=== PATIENT | female | born 1955 | race Caucasian/White ===

== ENCOUNTER 2023-12-04 15:07 | Inpatient (IN) | payer OTHER, MEDICAID ==
[~2023-12-04] VITALS: Ht 167.6 cm; Wt 49.5 kg
[2023-12-04 16:12] LABS: Urine Bacteria MANY /hpf (None Seen); Urine Blood 2+ /uL (Negative); Urine Clarity Ex.Turbid (Clear); Urine Color Colorless (Yellow); Urine Mucus FEW (None Seen); Urine Protein, UAD TRACE (Negative); Urine Specific Gravity 1.008 (1.001-1.035); Urine Urobilinogen Normal (Negative); Urine WBC 523 /hpf (0 - 5); Urine WBC Clumps PRESENT /hpf (None Seen); Urine pH 5.5 (5.0-9.0)
[2023-12-04 16:45] LABS: Basophils # (auto) 0 10 ^3/uL (0-0.2); Eosinophils # (auto) 0.5 10 ^3/uL (0-0.8); Eosinophils % (auto) 3.5 % (0.0-7.0); Hematocrit 37.6 % (36.0-46.0); Hemoglobin 12.4 g/dL (12.2-16.2); Lymphocytes # (auto) 0.4 10 ^3/uL (0.4-5.4); Lymphocytes % (auto) 2.9 % (10.0-50.0); Mean Corpuscular Hemoglobin 31.3 pg (28.0-32.0); Mean Corpuscular Volume 94.6 fL (80.0-100.0); Monocytes # (auto) 0.7 10 ^3/uL (0-1.3); Monocytes % (auto) 4.4 % (0.0-12.0); Neutrophils # (auto) 13.5 10 ^3/uL (1.6-8.6); Neutrophils % (auto) 89.2 % (37.0-80.0); Red Blood Cells 3.97 10^6/uL (4.0-5.20); White Blood Cell 15.2 10^3/uL (4.4-10.8)
[2023-12-04 17:01] LABS: Alanine Aminotransferase 356 U/L (7-40); Albumin 3.5 g/dL (3.2-4.8); Alkaline Phosphatase 102 U/L (46-116); Anion Gap 6 (5-15); Aspartate Aminotransferase 356 U/L (13-40); BUN/Creatinine Ratio 30.8 (10.0-20.0); Bilirubin, Total 0.9 mg/dL (0.2-1.0); Blood Urea Nitrogen 73 mg/dL (9-23); Carbon Dioxide 25 mmol/L (20-30); Chloride 102 mmol/L (98-107); Glucose 115 mg/dL (74-106); Potassium 4.6 mmol/L (3.5-5.1); Sodium 133 mmol/L (136-145); Total Protein 5.7 g/dL (5.7-8.2)
[2023-12-04] MEDS: KETOROLAC TROMETH 30 MG/ML 1ML VIAL IV ONE (17:41)
[2023-12-04] MEDS: ALBUTEROL SULF 2.5 MG/0.5ML(0.5%) NEB SOLN NEB ONE (17:55)
[2023-12-04] MEDS: IPRATROPIUM BROM 0.5 MG/2.5ML INH SOL NEB ONE (17:55)
[2023-12-04] MEDS: DexAMETHasone SOD PHOS 10MG/1ML VIAL INJ IV ONE (19:54)
[2023-12-04 19:55] VITALS: PULSE 89; RESP 18; O2SAT 96
[2023-12-04] MEDS: SODIUM CHLORIDE 0.9% 1,000 ML IV ONE (20:06)
[2023-12-04] MEDS: cefTRIAXone 1GM/50ML D5W 50 ML IV ONE (20:07)
[2023-12-04] MEDS ORDERED: IPRATROPIUM BROM 0.5 MG/2.5ML INH SOL NEB PRN (22:00)
[2023-12-04] MEDS ORDERED: ALBUTEROL SULF 2.5 MG/0.5ML(0.5%) NEB SOLN NEB PRN (22:00)
[2023-12-04] MEDS ORDERED: ATORVASTATIN 20 MG TAB PO SCH (22:00)
[2023-12-04] MEDS ORDERED: ONDANSETRON HCL 4 MG/2 ML VIAL IV PRN (22:00)
[2023-12-04] MEDS ORDERED: ACETAMINOPHEN 325 MG TAB PO PRN (22:00)
[2023-12-04 22:50] VITALS: BP 95/54; PULSE 85; RESP 20; TEMP 102; O2SAT 97
[2023-12-04] MEDS ORDERED: NITROGLYCERIN 0.4 MG SL TAB SL PRN (23:00)
[2023-12-04] MEDS ORDERED: MORPHINE SULFATE INJ 2 MG/ml SYRG IV PRN (23:00)
[2023-12-04] MEDS: ENOXAPARIN SOD 100 MG/1 ML SYRINGE SC ONE (23:35)
[2023-12-04] MEDS: HYDROcodone-ACET 5/325MG TAB PO PRN (23:36)
[2023-12-04] MEDS: TEMAZEPAM 15 MG CAP PO PRN (23:36)
[2023-12-05] VITALS (11 sets, daily range): BP systolic 108–120; BP diastolic 62–84; PULSE 61–88; RESP 16–18; TEMP 97–98.3; O2SAT 91–99
[2023-12-05] LABS: Rapid Influenza A Negative (Negative); Rapid Influenza B Negative (Negative)
[2023-12-05 00:01] LABS: COVID19 ANTIGEN SOFIA FIA NEGATIVE (NEGATIVE)
[2023-12-05 06:05] LABS: Basophils # (auto) 0 10 ^3/uL (0-0.2); Basophils % (auto) 0.1 % (0.0-2.0); Eosinophils # (auto) 0.1 10 ^3/uL (0-0.8); Eosinophils % (auto) 1.1 % (0.0-7.0); Hematocrit 34.3 % (36.0-46.0); Hemoglobin 11.5 g/dL (12.2-16.2); Lymphocytes # (auto) 0.2 10 ^3/uL (0.4-5.4); Lymphocytes % (auto) 1.7 % (10.0-50.0); Mean Corpuscular Hemoglobin 31.7 pg (28.0-32.0); Mean Corpuscular Hgb Conc. 33.5 g/dL (32.0-36.0); Mean Corpuscular Volume 94.7 fL (80.0-100.0); Monocytes # (auto) 0.3 10 ^3/uL (0-1.3); Monocytes % (auto) 2.3 % (0.0-12.0); Neutrophils # (auto) 12.1 10 ^3/uL (1.6-8.6); Neutrophils % (auto) 94.8 % (37.0-80.0); Red Blood Cells 3.62 10^6/uL (4.0-5.20); Red Cell Distribution Width 13.9 % (11.8-14.3); White Blood Cell 12.8 10^3/uL (4.4-10.8)
[2023-12-05 06:20] LABS: Alanine Aminotransferase 258 U/L (7-40); Albumin 3.3 g/dL (3.2-4.8); Alkaline Phosphatase 131 U/L (46-116); Anion Gap 11 (5-15); Aspartate Aminotransferase 174 U/L (13-40); BUN/Creatinine Ratio 29.3 (10.0-20.0); Blood Urea Nitrogen 66 mg/dL (9-23); Calcium 8.4 mg/dL (8.7-10.4); Carbon Dioxide 21 mmol/L (20-30); Chloride 104 mmol/L (98-107); Glucose 147 mg/dL (74-106); Potassium 4.9 mmol/L (3.5-5.1); Sodium 136 mmol/L (136-145)
[2023-12-05 06:21] LABS: Bilirubin, Total 0.4 mg/dL (0.2-1.0); Total Protein 5.8 g/dL (5.7-8.2)
[2023-12-05] MEDS: ASPirin 81 mg TAB PO SCH (09:53)
[2023-12-05 12:36] LABS: Magnesium 2.2 mg/dL (1.6-2.6)
[2023-12-05 12:37] LABS: Phosphorus 6.8 mg/dL (2.4-5.1)
[2023-12-05 13:17] LABS: Hepatitis B Surface Antigen Negative (Negative)
[2023-12-05 13:46] LABS: Hepatitis C Antibody Positive (Negative)
[2023-12-05 14:07] LABS: Urine Bacteria MOD /hpf (None Seen); Urine Blood 2+ /uL (Negative); Urine Clarity Ex.Turbid (Clear); Urine Color Light-Brown (Yellow); Urine Protein, UAD 1+ (Negative); Urine Specific Gravity 1.009 (1.001-1.035); Urine Urobilinogen Normal (Negative); Urine WBC 1682 /hpf (0 - 5); Urine WBC Clumps PRESENT /hpf (None Seen); Urine pH 5.5 (5.0-9.0)
[2023-12-05 14:10] LABS: Protein, Urine 29.1 mg/dL (0.0-11.9)
[2023-12-05 14:12] LABS: Creatinine, Urine 53.7 mg/dL (30.0-125.0); Urine Protein/Creatinine Ratio 0.54
[2023-12-05] MEDS: ERGOCALCIFEROL 50,000 UNIT(1.25MG) CAP PO SCH (15:54)
[2023-12-05] MEDS: SODIUM CHLORIDE 0.9% 1,000 ML IV SCH (15:58)
[2023-12-05] MEDS: cefTRIAXone 1GM/50ML D5W 50 ML IV SCH (20:34)
[2023-12-06 05:00] VITALS: TEMP 98.7
[2023-12-06 07:24] LABS: Hematocrit 35.7 % (36.0-46.0); Hemoglobin 11.9 g/dL (12.2-16.2); Mean Corpuscular Hemoglobin 31.9 pg (28.0-32.0); Mean Corpuscular Hgb Conc. 33.4 g/dL (32.0-36.0); Mean Corpuscular Volume 95.5 fL (80.0-100.0); Red Blood Cells 3.74 10^6/uL (4.0-5.20); Red Cell Distribution Width 13.8 % (11.8-14.3); White Blood Cell 11.4 10^3/uL (4.4-10.8)
[2023-12-06 07:33] LABS: Basophils % (manual) 0 (0.0-2.0); Blast Cells 0; Eosinophils % (manual) 0 (0-7); Metamyelocytes % 0; Myelocytes % 0; Promyelocytes % 0; Reactive Lymphocytes 0
[2023-12-06 07:36] LABS: Alanine Aminotransferase 178 U/L (7-40); Alkaline Phosphatase 110 U/L (46-116); Anion Gap 3 (5-15); BUN/Creatinine Ratio 34.7 (10.0-20.0); Blood Urea Nitrogen 61 mg/dL (9-23); Calcium 8.5 mg/dL (8.5-10.1); Carbon Dioxide 24 mmol/L (20-30); Chloride 108 mmol/L (98-107); Glucose 142 mg/dL (74-106); Potassium 4.7 mmol/L (3.5-5.1); Sodium 135 mmol/L (136-145)
[2023-12-06 07:37] LABS: Albumin 3.4 g/dL (3.2-4.8); Aspartate Aminotransferase 54 U/L (13-40); Bilirubin, Total 0.3 mg/dL (0.2-1.0); Total Protein 5.8 g/dL (5.7-8.2)
[2023-12-06 08:00] VITALS: PULSE 71
[2023-12-06 08:38] LABS: Band Neutrophils % (manual) 13; Lymphocytes % (manual) 6 (10.0-50.0); Monocytes % (manual) 3 (0-12); Platelet Estimate Decreased
[2023-12-06 10:06] VITALS: O2SAT 95
== END 2023-12-06 11:50 | disposition left against medical advice (07) | DRG 871 ==
LOC: EDBD 15:07 → ER 15:07 → TELE 22:54 → TELE-WESTW 22:54
PROVIDERS: ADMIT Nurse Practitioner; ATTEND Family Medicine
DX: A41.50 Gram-negative sepsis, unspecified (principal); I21.A1 Myocardial infarction type 2; J96.20 Acute and chronic respiratory failure, unspecified whether with hypoxia or hypercapnia; N17.0 Acute kidney failure with tubular necrosis; J44.1 Chronic obstructive pulmonary disease with (acute) exacerbation; N13.6 Pyonephrosis; F17.210 Nicotine dependence, cigarettes, uncomplicated; K72.90 Hepatic failure, unspecified without coma; N18.9 Chronic kidney disease, unspecified; D63.1 Anemia in chronic kidney disease; B19.20 Unspecified viral hepatitis C without hepatic coma; N32.0 Bladder-neck obstruction; Z20.822 Contact with and (suspected) exposure to COVID-19; Z53.29 Procedure and treatment not carried out because of patient's decision for other reasons; N35.92 Unspecified urethral stricture, female; Z79.899 Other long term (current) drug therapy; Z88.2 Allergy status to sulfonamides; Z80.1 Family history of malignant neoplasm of trachea, bronchus and lung
CPT/HCPCS: 36415; 71045; 71250; 74176; 76705; 76775; 80053; 81001; 82306; 82570; 82962; 83605; 83735; 83880; 83970; 84100; 84156; 84300; 84484; 85007; 85025; 85027; 85379; 86803; 87086; 87340; 87426; 87804; 93005; 93306; 94640; 96361; 96365; 96372; G0378; J1100; J1885

== ENCOUNTER 2025-03-14 21:11 | Inpatient (IN) | payer OTHER, MEDICAID ==
[~2025-03-14] VITALS: Ht 167.6 cm; Wt 56.6 kg
--- NOTE | 2025-03-14 21:20 | ECG ---
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
[2025-03-14] MEDS: DEXTROSE 50% SYRINGE 50 ML IV ONE (21:22)
--- NOTE | 2025-03-14 21:23 | ED.PDOC ---
History of Present Illness HPI Comments 70-year-old female is brought in by ambulance from private residence for chief complaint of shortness of breath. Significant history for COPD, hepatitis-C, liver failure, sepsis with UTI, and tobacco abuse. Per EMS personnel report, patient was reported to have been found on the floor on a pile of trash and unresponsive, gasping for air by her son's , who was visiting the patient's home, earlier, this evening. She was found on scene with initial O2 sat of 50% on room air and a blood glucose of 85. EN route, patient was given breathing treatment, oxygen, and fluids. No reported chest pain, cough, congestion, or further associated symptoms. 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 REVIEW OF SYSTEMS: Unable to obtain PHYSICAL EXAM: General: Lethargic, moving all extremities sporadically. Appears thin and f rail. Skin: Skin in warm, dry and intact. Appropriate color for ethnicity. HEENT: The head is normocephalic and atraumatic. Conjunctivae are clear without exudates or hemorrhage. Sclera is non-icteric. EOM are intact. PERRLA. No signs of nystagmus. Eyelids are normal in appearance without swelling or lesions. Oral mucosa is pink and moist Neck: The neck is supple with normal range of motion. No JVD. Cardiac: Heart rate and rhythm are normal. No murmurs, gallops, or rubs are auscultated. Respiratory: Coarse breath sounds on right lobe. Left lung sounds are clear in all lobes bilaterally without rales, rhonchi, or wheezes. Abdominal: Abdomen is soft, non-tender without distention, guarding or rigidity. Bowel sounds are present and normoactive in all four quadrants. Extremities: Upper and lower extremities are atraumatic in appearance without deformity or edema. Neurological: T patient is not speaking or answering questions. Awake with eyes open. There is no facial asymmetry. Psychiatric: Appropriate mood and affect. Good judgement and insight. Time Seen by MD: 21:16 Primary Care Provider: CASTRO Reviewed Notes: Nurses Notes, Chauffeur Notes, Medications, Allergies Allergies: Coded Allergies: Sulfa Antibiotics (Verified Allergy, Unknown, 12/04/23) Home Meds No Active Prescriptions or Reported Meds Information Source: Emergency Med Personnel Mode of Arrival: EMS Past Medical History PAST MEDICAL HISTORY: Denies Surgical History: Denies all surgeries OYSTER GROWER History: No Pertinent OYSTER GROWER History Family History Family History: Reviewed,noncontributory to illness Social History Smoker: Cigarettes Alcohol: Denies ETOH Use Drugs: Denies Drug Use Lives In: Home Was a procedure done? Was a procedure done?: Yes Sedation Sedation?: Yes Informed consent obtained: Yes Sedation start time: 22:00 Sedation end time: 22:15 Sedation total time: 15 minutes Intubation Indication: Respiratory Insufficiency, Altered Mental Status Prep: Preoxygenation Pretreated with: Other (Propofol) Medicated with: Succinylcholine (100 mg), Other (20 mg of etomidate) Intubation Approach: Orotracheal (7.5) Intubation size: cm (22 at the lip) EKG EKG : Pulse Rate (adult): 95 [place]: Normal Cardiac Rhythm: NSR, PAC's Block: None Hypertrophy: None ST: Normal Comments No STEMI Differential Dx Considerations may include: Differential diagnoses considered includebut arenot limited to acute Bronchitis, Asthma, COPD, Pneumothorax, PE, CHF, Pulmonary HTN, Anemia, CO Poisoning, Methemoglobinemia, Hyperventilation, Metabolic Acidosis, Pulmonary Edema, Pneumonia, ACS, Pericardial Tamponade, Anxiety, other X-Ray, Labs, Meds, VS Vital Signs Date Time Temp Pulse Resp B/P (MAP) Pulse Ox O2 Delivery O2 Flow Rate FiO2 03/15/25 01:00 95.7 99 21 100 95.7 03/15/25 00:53 20 100 Mechanical Ventilator+ 50 50 03/15/25 00:45 95.2 93 21 100 95.2 03/15/25 00:30 132/74 03/15/25 00:00 93.2 87 14 132/74 (93) 96 93.2 03/14/25 23:50 90 25 199/74 (115) 100 50 03/14/25 23:45 93.2 89 18 122/64 (83) 96 93.2 03/14/25 23:30 93.2 89 18 122/64 (83) 96 93.2 03/14/25 23:15 93.2 89 18 122/64 (83) 96 93.2 03/14/25 23:00 93.2 89 18 122/64 (83) 96 93.2 03/14/25 22:45 93.2 89 18 122/64 (83) 96 93.2 03/14/25 22:30 93.2 94 20 140/86 (104) 98 93.2 03/14/25 22:15 93.2 94 20 140/86 (104) 98 93.2 03/14/25 22:00 93.2 84 12 127/91 (103) 98 93.2 03/14/25 22:00 20 99 Mechanical Ventilator+ 100 100 03/14/25 21:45 93.2 77 23 115/82 (93) 98 93.2 03/14/25 21:40 93.2 77 23 115/82 (93) 98 93.2 03/14/25 21:40 93 20 164/68 (100) 100 100 03/14/25 21:23 95 03/14/25 21:17 95 03/14/25 21:11 100 24 145/64 96 Lab Test 03/15/25 00:40 03/15/25 00:36 03/14/25 22:50 03/14/25 22:49 Range/Units Blood Gas Specimen Type Arterial Arterial Blood Gas Sample Site Right radial Right radial Blood Gas Patient Temperature 37.0 37.0 Arterial Blood Date Drawn [id number] Arterial Blood pH 7.027 *L 6.922 *L 7.350-7.450 Arterial Blood Partial Pressure CO2 31.5 L 32.9 32.0-45.0 mmHg Arterial Blood Partial Pressure O2 242.4 H 512.7 *H 83.0-108.0 mmHg Arterial Blood HCO3 8.1 L 6.6 L 21.0-28.0 mmol/L Arterial Blood Oxygen Saturation 99.4 H 99.7 H 94.0-98.0 % Arterial Blood Base Excess -21.4 L -24.5 L -2.0-3.0 mmol/L Arterial Blood Oxyhemoglobin 98.6 H 99.0 H 94.0-98.0 % Arterial Blood Carboxyhemoglobin 0.6 0.4 L 0.5-1.5 % Arterial Blood Methemoglobin 0.2 0.3 0.0-1.5 % Killian Test Modified Modified Blood Gas Total Hemoglobin 9.50 L 8.90 L 12.0-16.0 g/dL Blood Gas Set Respiration Rate 20.0 20.0 Blood Gas Modality Vent - ac Vent - ac FiO2 % 50.0 100.0 Blood Gas Tidal Volume 500.0 500.0 Blood Gas PEEP or CPAP 5.0 5.0 Blood Gas Critical Value Read Back Yes Yes Blood Gas Notified Whom socrates Pickard Dr, c Blood Gas Notified Time [id number] Blood Gas Notified By roxie Campbell, roxie Sodium Level 146 H 136-145 mmol/L Potassium Level 6.2 *H 3.5-5.1 mmol/L Chloride Level 120 H 98-107 mmol/L Carbon Dioxide Level < 10 *L 20-31 mmol/L Anion Gap 16.46224 H 5-15 Blood Urea Nitrogen 129 *H 9-23 mg/dL Creatinine 11.81 *H 0.550-1.02 mg/dL Glomerular Filtration Rate Calc 3 >90 mL/min BUN/Creatinine Ratio 10.9 10.0-20.0 Serum Glucose 250 H 74-106 mg/dL Calcium Level 7.7 L 8.7-10.4 mg/dL Troponin I High Sensitivity 36 *H 39 *H </=34 ng/L Test 03/14/25 22:08 03/14/25 21:34 03/14/25 21:20 Range/Units Urine Color Brown H Yellow Urine Clarity Cloudy H Clear Urine pH 5.5 5.0-9.0 Urine Specific [place] 1.011 1.001-1.035 Urine Protein 1+ H Negative Urine Ketones Negative Negative Urine Blood 2+ H Negative /uL Urine Nitrite Negative Negative Urine Bilirubin Negative Negative Urine Urobilinogen Normal Negative mg/dL Urine Leukocyte Esterase 1+ H Negative /uL Urine Glucose Normal Normal mg/dL Urine Opiates Screen Neg NEGATIVE Urine Fentanyl Screen Neg NEGATIVE Urine Barbiturates Screen Neg NEGATIVE Urine Phencyclidine Screen Neg NEGATIVE Urine Amphetamines Screen Pos NEGATIVE Urine Benzodiazepines Screen Neg NEGATIVE Urine Cocaine Screen Neg NEGATIVE Urine Cannabinoids Screen Neg NEGATIVE White Blood Count 11.3 H 4.4-10.8 10^3/uL Red Blood Count 3.04 L 4.0-5.20 10^6/uL Hemoglobin 8.9 L 12.2-16.2 g/dL Hematocrit 29.0 L 36.0-46.0 % Mean Corpuscular Volume 95.3 80.0-100.0 fL Mean Corpuscular Hemoglobin 29.3 28.0-32.0 pg Mean Corpuscular Hemoglobin Concent 30.8 L 32.0-36.0 g/dL Red Cell Distribution Width 19.2 H 11.8-14.3 % Platelet Count 382 140-450 10^3/uL Mean Platelet Volume 7.7 6.9-10.8 fL Neutrophils (%) (Auto) 37.0-80.0 % Lymphocytes (%) (Auto) 10.0-50.0 % Monocytes (%) (Auto) 0.0-12.0 % Basophils (%) (Auto) 0.0-2.0 % Neutrophils # (Auto) 1.6-8.6 10 ^3/uL Lymphocytes # (Auto) 0.4-5.4 10 ^3/uL Monocytes # (Auto) 0-1.3 10 ^3/uL Differential Total Cells Counted 100.0 100 Neutrophils % (Manual) 73 37.0-80.0 Band Neutrophils % (Manual) 11 Lymphocytes % (Manual) 6 L 10.0-50.0 Monocytes % (Manual) 10 0-12 Eosinophils % (Manual) 0 0-7 Basophils % (Manual) 0 0.0-2.0 Metamyelocytes % (manual) 0 Myelocytes % (Manual) 0 Promyelocytes % (Manual) 0 Blast Cells % (Manual) 0 Reactive Lymphocytes 0 Platelet Estimate Adequate Sodium Level 144 136-145 mmol/L Potassium Level 6.7 *H 3.5-5.1 mmol/L Chloride Level 120 H 98-107 mmol/L Carbon Dioxide Level < 10 *L 20-31 mmol/L Anion Gap 14.90262 5-15 Blood Urea Nitrogen 127 *H 9-23 mg/dL Creatinine 12.72 *H 0.550-1.02 mg/dL Glomerular Filtration Rate Calc 3 >90 mL/min BUN/Creatinine Ratio 10.0 10.0-20.0 Serum Glucose 250 H 74-106 mg/dL Lactic Acid Level 0.7 0.4-2.0 mmol/L Calcium Level 8.1 L 8.7-10.4 mg/dL Magnesium Level 2.9 H 1.6-2.6 mg/dL Total Bilirubin < 0.2 L 0.2-1.0 mg/dL Aspartate Amino Transferase (AST) 27 13-40 U/L Alanine Aminotransferase (ALT) 19 7-40 U/L Alkaline Phosphatase 90 46-116 U/L Troponin I High Sensitivity 39 *H </=34 ng/L B-Type Natriuretic Peptide 134.64 0-100 pg/mL Total Protein 7.6 5.7-8.2 g/dL Albumin 4.0 3.2-4.8 g/dL Lipase 435 H 12-53 U/L Thyroid Stimulating Hormone (TSH) 1.85 0.55-4.78 uIU/mL Plasma/Serum Blood Alcohol < 3.0 <10 mg/dL Blood Gas Specimen Type Arterial Blood Gas Sample Site Right radial Blood Gas Patient Temperature 37.0 Arterial Blood Date Drawn [id number] Arterial Blood pH 6.922 *L 7.350-7.450 Arterial Blood Partial Pressure CO2 27.1 L 32.0-45.0 mmHg Arterial Blood Partial Pressure O2 319.1 *H 83.0-108.0 mmHg Arterial Blood HCO3 5.5 L 21.0-28.0 mmol/L Arterial Blood Oxygen Saturation 99.6 H 94.0-98.0 % Arterial Blood Base Excess -25.5 L -2.0-3.0 mmol/L Arterial Blood Oxyhemoglobin 98.7 H 94.0-98.0 % Arterial Blood Carboxyhemoglobin 0.5 0.5-1.5 % Arterial Blood Methemoglobin 0.4 0.0-1.5 % Killian Test Modified Blood Gas Total Hemoglobin 9.10 L 12.0-16.0 g/dL Blood Gas Liter Flow 15.00 Blood Gas Modality Mask - nrb FiO2 % 100.0 Blood Gas Critical Value Read Back Yes Blood Gas Notified Whom socrates Pickard Blood Gas Notified Time [id number] Blood Gas Notified By Jaci jara rrt Current Medications Medications (Trade) Dose Ordered Sig/Stacy Route Start Time Stop Time Status Last Admin Albuterol (Ventolin Medneb) 2.5 mg ONCE ONCE NEB 03/14/25 21:30 03/14/25 21:31 DC 03/14/25 22:35 Ipratropium Belt (Atrovent Medneb) 0.5 mg ONCE ONCE NEB 03/14/25 21:30 03/14/25 21:31 DC 03/14/25 22:35 Dextrose/Sodium Chloride 1,000 ml @ 125 mls/hr Q8H ONCE IV 03/14/25 21:30 03/15/25 05:29 03/14/25 22:58 Dexamethasone Sodium Phosphate 10 mg/Dextrose 51 ml @ 204 mls/hr ONCE ONCE IV 03/14/25 21:30 03/14/25 21:44 DC 03/14/25 23:16 Piperacillin Sod/ Tazobactam Sod 100 ml @ 100 mls/hr ONCE ONCE IV 03/14/25 21:30 03/14/25 22:29 DC 03/14/25 22:58 Vancomycin HCl 250 ml @ 250 mls/hr ONCE ONCE IV 03/14/25 21:30 03/14/25 22:29 DC 03/15/25 00:35 Sodium Bicarbonate 50 ml ONCE ONCE IV 03/14/25 21:30 03/14/25 21:31 DC 03/14/25 22:58 Insulin Human Regular (InsuLIN R) 10 units ONCE ONCE IV 03/15/25 00:30 03/15/25 00:31 DC 03/15/25 01:25 Dextrose 50 ml ONCE ONCE IV 03/15/25 00:30 03/15/25 00:31 DC 03/15/25 01:40 Albuterol (Ventolin Medneb) 20 mg ONCE ONCE NEB 03/15/25 00:30 03/15/25 00:31 DC 03/15/25 00:53 Sodium Bicarbonate 50 ml ONCE ONCE IV 03/15/25 00:30 03/15/25 00:31 DC 03/15/25 01:55 Calcium Gluconate/ Sodium Chloride 50 ml @ 120 mls/hr ONCE ONCE IV 03/15/25 00:30 03/15/25 00:54 DC 03/15/25 01:34 Furosemide (Lasix Injection) 20 mg ONCE ONCE IV 03/15/25 00:30 03/15/25 00:31 DC 03/15/25 01:27 Sodium Chloride 1,000 ml @ 1,000 mls/hr Q1H ONCE IV 03/15/25 00:30 03/15/25 01:29 DC 03/15/25 01:15 Time of 1ST Reevaluation: 21:46 Reevaluation 1ST: Unchanged Patient Education/Counseling: Other (Patient is intubated) Family Education/Counseling: No Family Present SEPSIS Sepsis Screen Physician Orders Covid19 Antigen Mikayla (03/14/25 ) Rapid Influenza A&B (03/14/25 21:16) Blood Culture (03/14/25 21:16) Saline Lock (03/14/25 21:16) Straight Cath. (03/14/25 ) Head Without Contrast (03/14/25 21:16) Abg W/ Co-Ox (03/14/25 21:16) Oven Unloader (03/14/25 ) Electrocardigram (03/14/25 22:16) Electrocardigram (03/15/25 00:16) Blood Glucose Assessment (03/14/25 21:16) D5w/Sod Chlo 0.9% (D5w Ns 0.9%) (03/14/25 21:30) Respiratory Culture W/ Gs (03/14/25 21:53) Abg W/ Co-Ox (03/14/25 22:40) Ventilator Orders (03/14/25 21:53) Chest Xray 1 View (03/14/25 22:03) Abg W/ Co-Ox (03/15/25 00:16) Vital Signs Date Time Temp Pulse Resp B/P (MAP) Pulse Ox O2 Delivery O2 Flow Rate FiO2 03/15/25 01:00 95.7 99 21 100 95.7 03/15/25 00:53 20 100 Mechanical Ventilator+ 50 50 03/15/25 00:45 95.2 93 21 100 95.2 03/15/25 00:30 132/74 03/15/25 00:00 93.2 87 14 132/74 (93) 96 93.2 03/14/25 23:50 90 25 199/74 (115) 100 50 03/14/25 23:45 93.2 89 18 122/64 (83) 96 93.2 03/14/25 23:30 93.2 89 18 122/64 (83) 96 93.2 03/14/25 23:15 93.2 89 18 122/64 (83) 96 93.2 03/14/25 23:00 93.2 89 18 122/64 (83) 96 93.2 03/14/25 22:45 93.2 89 18 122/64 (83) 96 93.2 03/14/25 22:30 93.2 94 20 140/86 (104) 98 93.2 03/14/25 22:15 93.2 94 20 140/86 (104) 98 93.2 03/14/25 22:00 93.2 84 12 127/91 (103) 98 93.2 03/14/25 22:00 20 99 Mechanical Ventilator+ 100 100 03/14/25 21:45 93.2 77 23 115/82 (93) 98 93.2 03/14/25 21:40 93.2 77 23 115/82 (93) 98 93.2 03/14/25 21:40 93 20 164/68 (100) 100 100 03/14/25 21:23 95 03/14/25 21:17 95 03/14/25 21:11 100 24 145/64 96 Laboratory Tests Test 03/14/25 21:34 Lactic Acid Level 0.7 mmol/L (0.4-2.0) White Blood Count 11.3 10^3/uL (4.4-10.8) H Medications Medications Dose Ordered Sig/Stacy Route Start Time Stop Time Status Last Admin Dose Admin Albuterol 2.5 mg ONCE ONCE NEB 03/14/25 21:30 03/14/25 21:31 DC 03/14/25 22:35 Albuterol 20 mg ONCE ONCE NEB 03/15/25 00:30 03/15/25 00:31 DC 03/15/25 00:53 Calcium Gluconate/ Sodium Chloride 50 ml @ 120 mls/hr ONCE ONCE IV 03/15/25 00:30 03/15/25 00:54 DC 03/15/25 01:34 Dexamethasone Sodium Phosphate 10 mg/Dextrose 51 ml @ 204 mls/hr ONCE ONCE IV 03/14/25 21:30 03/14/25 21:44 DC 03/14/25 23:16 Dextrose 50 ml ONCE ONCE IV 03/15/25 00:30 03/15/25 00:31 DC 03/15/25 01:40 Dextrose/Sodium Chloride 1,000 ml @ 125 mls/hr Q8H ONCE IV 03/14/25 21:30 03/15/25 05:29 03/14/25 22:58 Furosemide 20 mg ONCE ONCE IV 03/15/25 00:30 03/15/25 00:31 DC 03/15/25 01:27 Insulin Human Regular 10 units ONCE ONCE IV 03/15/25 00:30 03/15/25 00:31 DC 03/15/25 01:25 Ipratropium Belt 0.5 mg ONCE ONCE NEB 03/14/25 21:30 03/14/25 21:31 DC 03/14/25 22:35 Piperacillin Sod/ Tazobactam Sod 100 ml @ 100 mls/hr ONCE ONCE IV 03/14/25 21:30 03/14/25 22:29 DC 03/14/25 22:58 Sodium Bicarbonate 50 ml ONCE ONCE IV 03/14/25 21:30 03/14/25 21:31 DC 03/14/25 22:58 Sodium Bicarbonate 50 ml ONCE ONCE IV 03/15/25 00:30 03/15/25 00:31 DC 03/15/25 01:55 Sodium Chloride 1,000 ml @ 1,000 mls/hr Q1H ONCE IV 03/15/25 00:30 03/15/25 01:29 DC 03/15/25 01:15 Vancomycin HCl 250 ml @ 250 mls/hr ONCE ONCE IV 03/14/25 21:30 03/14/25 22:29 DC 03/15/25 00:35 Departure 1 Departure Time of Disposition: 00:19 Impression: Primary Impression: Metabolic encephalopathy Additional Impressions: Metabolic acidosis Acute renal failure COPD (chronic obstructive pulmonary disease) Hepatitis C Disposition: ADMITTED INPATIENT Condition: Critical e-Prescriptions No Active Prescriptions or Reported Meds Comments 70-year-old female who presented to the emergency department via EMS with altered mental status. She was intubated for airway protection, severe acidosis. Antibiotics initiated for suspected sepsis. Hyperkalemia treatment initiated Patient admitted to hospitalist service for further treatment, evaluation and monitoring. Critical Care Note Critical Care Time?: Yes (55 min-critical care time only) Critical care comment: Due to a high probability of clinically significant, life threatening deterioration, the patient required my highest level of preparedness to inte rvene emergently and I personally spent this critical care time directly and personally managing the patient. This critical care time included obtaining a history; examining the patient; pulse oximetry; ordering and review of studies; arranging urgent treatment with development of a management plan; evaluation of patient's response to treatment; frequent reassessment; and, discussions with other providers. This critical care time was performed to assess and manage the high probability of imminent, life-threatening deterioration that could result in multi-organ failure. It was exclusive of separately billable procedures and treating other patients and teaching time. Please see my other sections and the rest of the note for further information on patient assessment and treatment. Stability Stability form required: No Heart Score Heart Score: Heart Score Response (Comments) Value History N/A 0 EKG N/A 0 Age N/A 0 Risk Factors N/A 0 Troponin N/A 0 Total 0 I personally scribed for HENNY LUCIO MD ([email or web address]) on 03/14/25 at 21:23. Electronically submitted by Trino Rodgers ([email or web address]). I personally scribed for HENNY LUCIO MD ([email or web address]) on 03/15/25 at 00:50. Electronically submitted by Trino Rodgers ([email or web address]). HENNY LUCIO MD Mar 14, 2025 21:23
[2025-03-14] MEDS: SUCCINYLCHOLINE CHLORIDE 20 MG/ML 10ML VIAL IV ONE (21:37)
[2025-03-14] MEDS: ETOMIDATE (2MG/ML) 20ML VIAL IV ONE (21:37)
[2025-03-14] MEDS: PROPOFOL 100 ML IV ONE (21:37)
[2025-03-14 21:49] LABS: Hemoglobin 8.9 g/dL (12.2-16.2)
[2025-03-14 21:50] LABS: Hematocrit 29.0 % (36.0-46.0); Mean Corpuscular Hemoglobin 29.3 pg (28.0-32.0); Mean Corpuscular Volume 95.3 fL (80.0-100.0)
[2025-03-14 21:52] LABS: Base Excess -25.5 mmol/L (-2.0-3.0)
[2025-03-14 22:19] LABS: Alanine Aminotransferase 19 U/L (7-40); Albumin 4.0 g/dL (3.2-4.8); Alkaline Phosphatase 90 U/L (46-116); Anion Gap 14.00001 (5-15); BUN/Creatinine Ratio 10.0 (10.0-20.0); Sodium 144 mmol/L (136-145); Total Protein 7.6 g/dL (5.7-8.2)
[2025-03-14 22:27] LABS: Chloride 120 mmol/L (98-107); Glucose 250 mg/dL (74-106)
[2025-03-14 22:28] LABS: Bilirubin, Total < 0.2 mg/dL (0.2-1.0); Calcium 8.1 mg/dL (8.7-10.4); Magnesium 2.9 mg/dL (1.6-2.6)
[2025-03-14 22:30] LABS: Carbon Dioxide < 10 mmol/L (20-31); Potassium 6.7 mmol/L (3.5-5.1); Total Cells Counted 100.0 (100)
[2025-03-14 22:31] LABS: Blood Urea Nitrogen 127 mg/dL (9-23)
--- NOTE | 2025-03-14 22:31 | DVH ---
CHEST RADIOGRAPH Indication: S/P INTUBATION Technique: Single frontal view of the chest was obtained Comparison: XY CHEST XRAY 1 VIEW on DOS: 12/04/23, CT CHST AB PEL WO CON-NO IV/ORAL on DOS: 12/04/23 FINDINGS: Lines and Tubes: Endotracheal tube 7.5 cm above the mirtha. Lungs: No focal consolidation. Pleura: No effusion. No pneumothorax. Cardiomediastinal contours: Unremarkable Bones: No acute osseous abnormality. IMPRESSION: 1. Endotracheal tube 7.5 cm above the mirtha. 2. Inflation
[2025-03-14] MEDS: IPRATROPIUM BROM 0.5 MG/2.5ML INH SOL NEB ONE (22:35)
[2025-03-14] MEDS: ALBUTEROL SULF 2.5 MG/0.5ML(0.5%) NEB SOLN NEB ONE (22:35)
[2025-03-14 22:44] LABS: Lipase 435 U/L (12-53)
[2025-03-14] MEDS: SODIUM BICARB 8.4% 50Meq/50ml SYR Vial IV ONE (22:58)
[2025-03-14] MEDS: PIPERACILLIN-TAZOB 3.375GM 100 ML IV ONE (22:58)
[2025-03-14] MEDS: D5W/SOD CHLO 0.9% 1,000 ML IV ONE (22:58)
[2025-03-14 23:00] LABS: Base Excess -24.5 mmol/L (-2.0-3.0)
[2025-03-14 23:07] LABS: Urine Protein, UAD 1+ (Negative)
[2025-03-14 23:37] LABS: Amphetamine Screen, Urine Pos (NEGATIVE); Barbiturate Scree,Urine Neg (NEGATIVE); Benzodiazephine Screen, Urine Neg (NEGATIVE); Cannabinoid Screen, Urine Neg (NEGATIVE); Cocaine Screen, Urine Neg (NEGATIVE); Opiate Scree,Urine Neg (NEGATIVE); Phencyclidine Screen, Urine Neg (NEGATIVE)
[2025-03-15] VITALS (76 sets, daily range): BP systolic 87–131; BP diastolic 1–70; PULSE 65–101; RESP 15–30; TEMP 94–98; O2SAT 85–100
[2025-03-15] MEDS: PROPOFOL 100 ML IV SCH (00:30)
[2025-03-15] MEDS: VANCOMYCIN 1GM/250ML KIT 250 ML IV ONE (00:35)
[2025-03-15 00:48] LABS: Base Excess -21.4 mmol/L (-2.0-3.0)
[2025-03-15] MEDS: ALBUTEROL SULF 2.5 MG/0.5ML(0.5%) NEB SOLN NEB ONE (00:53)
[2025-03-15 01:05] LABS: Anion Gap 16.00001 (5-15)
[2025-03-15 01:10] LABS: BUN/Creatinine Ratio 10.9 (10.0-20.0)
[2025-03-15 01:12] LABS: Calcium 7.7 mg/dL (8.7-10.4); Chloride 120 mmol/L (98-107); Glucose 250 mg/dL (74-106); Sodium 146 mmol/L (136-145)
[2025-03-15] MEDS: SODIUM CHLORIDE 0.9% 1,000 ML IV ONE (01:15)
[2025-03-15 01:25] LABS: Blood Urea Nitrogen 129 mg/dL (9-23); Carbon Dioxide < 10 mmol/L (20-31); Potassium 6.2 mmol/L (3.5-5.1)
[2025-03-15] MEDS: InsuLIN REG 1unit/0.01ml Soln (100units/ml) IV ONE (01:25)
[2025-03-15] MEDS: FUROSEMIDE 20 MG/2 ML VIAL IV ONE (01:27)
[2025-03-15] MEDS: CALCIUM GLUC 1,000mg/50ml-NS 50 ML IV ONE (01:34)
[2025-03-15] MEDS: DEXTROSE (50%) 50ML SYRG IV ONE (01:40)
[2025-03-15] MEDS: PROPOFOL 100 ML IV ONE (01:40)
[2025-03-15] MEDS: ETOMIDATE (2MG/ML) 20ML VIAL IV ONE (01:47)
[2025-03-15] MEDS: SUCCINYLCHOLINE CHLORIDE 20 MG/ML 10ML VIAL IV ONE (01:48)
[2025-03-15] MEDS: SODIUM BICARB 8.4% 50Meq/50ml SYR INJ IV ONE (01:55)
--- NOTE | 2025-03-15 02:54 | DVH ---
EXAM: CT HEAD WITHOUT CONTRAST INDICATION: AMS TECHNIQUE: CT of the head without intravenous contrast. Radiation Dose : 1. Head: CT Dose: CTDI volume is 60.18 mGy. Dose-length product is 1185.8 mGy*cm The dose indicators for CT are the volume Computed Tomography (CT) Dose Index (CTDIvol) and the Dose Length Product (DLP), and are measured in units of mGy and mGy-cm, respectively. These indicators are not patient dose, but values generated from the CT scanner acquisition factors. The report includes radiation exposure data for exposures received during this examination. COMPARISON: None FINDINGS: There is no evidence of acute intracranial hemorrhage, extra-axial collection, mass effect, midline s hift, herniation or hydrocephalus. The ventricles, sulci and cisterns are age appropriate. The dee-white differentiation is intact. Patchy periventricular and subcortical white matter hypoattenuation is nonspecific but may be related to small vessel ischemic disease. Sphenoid mucosal sinus disease. The remaining visualized paranasal sinuses and mastoid air cells are clear. The surrounding soft tissues and osseous structures are unremarkable. IMPRESSION: 1. No acute intracranial abnormality. Radiation optimization: All CT scans at this facility use at least one of these dose optimization steve hniques: automated exposure control mA and/or kV adjustment per patient size (includes targeted exam s where dose is matched to clinical indication) or iterative reconstruction.
[2025-03-15] MEDS ORDERED: NITROGLYCERIN 0.4 MG SL TAB SL PRN (04:15)
[2025-03-15] MEDS ORDERED: ALBUTEROL SULF 2.5 MG/0.5ML(0.5%) NEB SOLN NEB PRN (04:15)
[2025-03-15] MEDS ORDERED: MORPHINE SULFATE INJ 2 MG/ml SYRG IV PRN (04:15)
[2025-03-15] MEDS ORDERED: ONDANSETRON HCL 4 MG/2 ML VIAL IV PRN (04:15)
[2025-03-15] MEDS ORDERED: ACETAMINOPHEN 325 MG TAB PO PRN (04:15)
--- NOTE | 2025-03-15 04:15 | DVHHP2 ---
History of Present Illness Reason for Visit: Altered mental status History of Present Illness 70-year-old female presents for evaluation of altered mental status. Patient was found unresponsive gasping for air in her home. Patient was intubated on arrival to the emergency department for airway protection. Past Medical History COPD, hepatitis-C Past Surgical History Unknown Family History Unknown Drugs: Other (Methamphetamine) Review of Systems Review of Systems Review of systems can not be completed, patient is sedated and intubated. Allergies: Coded Allergies: Sulfa Antibiotics (Verified Allergy, Unknown, 12/04/23) Medications Current Medications Medications Dose Ordered Sig/Stacy Route Start Time Stop Time Status Last Admin Dose Admin Propofol 100 ml @ 1.62 mls/hr Q24H IV 03/15/25 01:30 03/15/25 00:30 4.86 MLS/HR Exam Vital Signs Vital Signs Date Time Temp Pulse Resp B/P (MAP) Pulse Ox O2 Delivery O2 Flow Rate FiO2 03/15/25 03:16 94.0 99 23 118/56 100 50 94.0 03/15/25 00:53 Mechanical Ventilator+ Exam Gen: 70-year-old female in mild distress Skin: Warm, dry, normal color and texture, no rash. HEENT: Normocephalic atraumatic, mucous membranes moist and pink. Neck: Cervical and supraclavicular nodes normal without enlargement, trachea is midline, thyroid gland is normal without masses. Pulmonary: Intubated, diminished breath sounds bilaterally Cardiac: Regular rate and rhythm. No murmur Abdomen: Soft, nontender, nondistended, bowel sounds present all 4 quadrants, no guarding, no rigidity, no organomegaly. Extremities: No cyanosis, clubbing, no edema Neuro: Sedated Labs/Xrays ORDERING PHYSICIAN: HENNY LUCIO MD PROCEDURE(s): HWOCT - HEAD WITHOUT CONTRAST REASON: [facility] ORDER NUMBER(s): [id number], ACCESSION NUMBER(s): [id number] EXAM: CT HEAD WITHOUT CONTRAST INDICATION: AMS TECHNIQUE: CT of the head without intravenous contrast. Radiation Dose : 1. Head: CT Dose: CTDI volume is 60.18 mGy. Dose-length product is 1185.8 mGy*cm The dose indicators for CT are the volume Computed Tomography (CT) Dose Index (CTDIvol) and the Dose Length Product (DLP), and are measured in units of mGy and mGy-cm, respectively. These indicators are not patient dose, but values generated from the CT scanner acquisition factors. The report includes radiation exposure data for exposures received during this examination. COMPARISON: None FINDINGS: There is no evidence of acute intracranial hemorrhage, extra-axial collection, mass effect, midline shift, herniation or hydrocephalus. The ventricles, sulci and cisterns are age appropriate. The dee-white differentiation is intact. Patchy periventricular and subcortical white matter hypoattenuation is nonspecific but may be related to small vessel ischemic disease. Sphenoid mucosal sinus disease. The remaining visualized paranasal sinuses and mastoid air cells are clear. The surrounding soft tissues and osseous structures are unremarkable. IMPRESSION: 1. No acute intracranial abnormality. Radiation optimization: All CT scans at this facility use at least one of these dose optimization techniques: automated exposure control mA and/or kV adjustment per patient size (includes targeted exams where dose is matched to clinical indication) or iterative reconstruction. RING PHYSICIAN: HENNY LUCIO MD PROCEDURE(s): CXR1 - CHEST XRAY 1 VIEW REASON: S/P INTUBATION ORDER NUMBER(s): [id number], ACCESSION NUMBER(s): [id number] CHEST RADIOGRAPH Indication: S/P INTUBATION Technique: Single frontal view of the chest was obtained Comparison: XY CHEST XRAY 1 VIEW on DOS: 12/04/23, CT CHST AB PEL WO CON-NO IV/ORAL on DOS: 12/04/23 FINDINGS: Lines and Tubes: Endotracheal tube 7.5 cm above the mirtha. Lungs: No focal consolidation. Pleura: No effusion. No pneumothorax. Cardiomediastinal contours: Unremarkable Bones: No acute osseous abnormality. IMPRESSION: 1. Endotracheal tube 7.5 cm above the mirtha. 2. Inflation Labs Test 03/15/25 03:49 03/15/25 01:19 03/15/25 00:40 03/15/25 00:36 Range/Units Potassium Level 5.0 3.5-5.1 mmol/L POC Glucose 249 H 70-106 mg/dl Blood Gas Specimen Type Arterial Blood Gas Sample Site Right radial Blood Gas Patient Temperature 37.0 Arterial Blood Date Drawn [id number] Arterial Blood pH 7.027 *L 7.350-7.450 Arterial Blood Partial Pressure CO2 31.5 L 32.0-45.0 mmHg Arterial Blood Partial Pressure O2 242.4 H 83.0-108.0 mmHg Arterial Blood HCO3 8.1 L 21.0-28.0 mmol/L Arterial Blood Oxygen Saturation 99.4 H 94.0-98.0 % Arterial Blood Base Excess -21.4 L -2.0-3.0 mmol/L Arterial Blood Oxyhemoglobin 98.6 H 94.0-98.0 % Arterial Blood Carboxyhemoglobin 0.6 0.5-1.5 % Arterial Blood Methemoglobin 0.2 0.0-1.5 % Killian Test Modified Blood Gas Total Hemoglobin 9.50 L 12.0-16.0 g/dL Blood Gas Set Respiration Rate 20.0 Blood Gas Modality Vent - ac FiO2 % 50.0 Blood Gas Tidal Volume 500.0 Blood Gas PEEP or CPAP 5.0 Blood Gas Critical Value Read Back Yes Blood Gas Notified Whom socrates Pickard Blood Gas Notified Time [id number] Blood Gas Notified By Jaci jara rrt Sodium Level 146 H 136-145 mmol/L Chloride Level 120 H 98-107 mmol/L Carbon Dioxide Level < 10 *L 20-31 mmol/L Anion Gap 16.04452 H 5-15 Blood Urea Nitrogen 129 *H 9-23 mg/dL Creatinine 11.81 *H 0.550-1.02 mg/dL Glomerular Filtration Rate Calc 3 >90 mL/min BUN/Creatinine Ratio 10.9 10.0-20.0 Serum Glucose 250 H 74-106 mg/dL Calcium Level 7.7 L 8.7-10.4 mg/dL Troponin I High Sensitivity 36 *H </=34 ng/L Test 03/14/25 22:08 03/14/25 21:34 03/14/25 21:20 Range/Units Urine Color Brown H Yellow Urine Clarity Cloudy H Clear Urine pH 5.5 5.0-9.0 Urine Specific [place] 1.011 1.001-1.035 Urine Protein 1+ H Negative Urine Ketones Negative Negative Urine Blood 2+ H Negative /uL Urine Nitrite Negative Negative Urine Bilirubin Negative Negative Urine Urobilinogen Normal Negative mg/dL Urine Leukocyte Esterase 1+ H Negative /uL Urine Glucose Normal Normal mg/dL Urine Opiates Screen Neg NEGATIVE Urine Fentanyl Screen Neg NEGATIVE Urine Barbiturates Screen Neg NEGATIVE Urine Phencyclidine Screen Neg NEGATIVE Urine Amphetamines Screen Pos NEGATIVE Urine Benzodiazepines Screen Neg NEGATIVE Urine Cocaine Screen Neg NEGATIVE Urine Cannabinoids Screen Neg NEGATIVE White Blood Count 11.3 H 4.4-10.8 10^3/uL Red Blood Count 3.04 L 4.0-5.20 10^6/uL Hemoglobin 8.9 L 12.2-16.2 g/dL Hematocrit 29.0 L 36.0-46.0 % Mean Corpuscular Volume 95.3 80.0-100.0 fL Mean Corpuscular Hemoglobin 29.3 28.0-32.0 pg Mean Corpuscular Hemoglobin Concent 30.8 L 32.0-36.0 g/dL Red Cell Distribution Width 19.2 H 11.8-14.3 % Platelet Count 382 140-450 10^3/uL Mean Platelet Volume 7.7 6.9-10.8 fL Neutrophils (%) (Auto) 37.0-80.0 % Lymphocytes (%) (Auto) 10.0-50.0 % Monocytes (%) (Auto) 0.0-12.0 % Basophils (%) (Auto) 0.0-2.0 % Neutrophils # (Auto) 1.6-8.6 10 ^3/uL Lymphocytes # (Auto) 0.4-5.4 10 ^3/uL Monocytes # (Auto) 0-1.3 10 ^3/uL Differential Total Cells Counted 100.0 100 Neutrophils % (Manual) 73 37.0-80.0 Band Neutrophils % (Manual) 11 Lymphocytes % (Manual) 6 L 10.0-50.0 Monocytes % (Manual) 10 0-12 Eosinophils % (Manual) 0 0-7 Basophils % (Manual) 0 0.0-2.0 Metamyelocytes % (manual) 0 Myelocytes % (Manual) 0 Promyelocytes % (Manual) 0 Blast Cells % (Manual) 0 Reactive Lymphocytes 0 Platelet Estimate Adequate Lactic Acid Level 0.7 0.4-2.0 mmol/L Magnesium Level 2.9 H 1.6-2.6 mg/dL Total Bilirubin < 0.2 L 0.2-1.0 mg/dL Aspartate Amino Transferase (AST) 27 13-40 U/L Alanine Aminotransferase (ALT) 19 7-40 U/L Alkaline Phosphatase 90 46-116 U/L B-Type Natriuretic Peptide 134.64 0-100 pg/mL Total Protein 7.6 5.7-8.2 g/dL Albumin 4.0 3.2-4.8 g/dL Lipase 435 H 12-53 U/L Thyroid Stimulating Hormone (TSH) 1.85 0.55-4.78 uIU/mL Plasma/Serum Blood Alcohol < 3.0 <10 mg/dL Blood Gas Liter Flow 15.00 SEPSIS Sepsis Screen Date sepsis recognized/suspect: Mar 14, 2025 Time Sepsis recognized/suspect: 2110 Recent Procedure: No On Antibiotic Therapy: No Respiratory Rate >20: No Heart Rate >90: No Temp<36 C (96.8 F) or >38.3 C: No SBP <90 or MAP <65 mmHG: No New Acute Mental Status Change: No Is the patient on CPAP, BIPAP,: No Physician Orders Covid19 Antigen Mikayla (03/14/25 ) Rapid Influenza A&B (03/14/25 21:16) Blood Culture (03/14/25 21:16) Saline Lock (03/14/25 21:16) Straight Cath. (03/14/25 ) Head Without Contrast (03/14/25 21:16) Abg W/ Co-Ox (03/14/25 21:16) Harpsichord Maker (03/14/25 ) Electrocardigram (03/14/25 22:16) Electrocardigram (03/15/25 00:16) Blood Glucose Assessment (03/14/25 21:16) D5w/Sod Chlo 0.9% (D5w Ns 0.9%) (03/14/25 21:30) Respiratory Culture W/ Gs (03/14/25 21:53) Abg W/ Co-Ox (03/14/25 22:40) Ventilator Orders (03/14/25 21:53) Chest Xray 1 View (03/14/25 22:03) Abg W/ Co-Ox (03/15/25 00:16) Communication Order (03/15/25 01:22) Propofol (Diprivan) (03/15/25 01:30) Rass Sedation Scale Q1HR (03/15/25 01:25) Creatine Kinase (03/15/25 04:03) Sod Chl 0.45% (Sodi... W/Sodium Bicarb 5 (03/15/25 04:15) Abg W/ Co-Ox (03/15/25 05:30) Ceftriaxone Ivpb Rocephin (03/15/25 09:00) Albuterol Medneb (Ventolin Medneb) (03/15/25 04:15) *[facility] (03/15/25 04:03) Admit (03/15/25 04:03) Ondansetron Hcl (Zofran) (03/15/25 04:15) Complete Blood Count (03/16/25 04:00) Comprehensive Metabolic Panel (03/16/25 04:00) Echo 2d Mode Cardiac Dop (03/15/25 04:03) Condition: Unstable (03/15/25 04:03) Acetaminophen Tablet (Tylenol Tablet) (03/15/25 04:15) Maintain Bed Rest (03/15/25 04:03) Sequential Compression Device (03/15/25 ) Nitroglycerin Sublingual (Ntrostat Subli (03/15/25 04:15) Morphine Sulfate Injection (03/15/25 04:15) Stat Ekg For Chest Pain (03/15/25 04:03) Notify Of Changes From Base (03/15/25 04:03) Land Development Manager For 24 Hours (03/15/25 04:03) Emergency Dysrhythmia Protocol (03/15/25 04:03) Rhythm Strips Once Every Shift (03/15/25 04:03) Oxygen By Nasal Cannula (03/15/25 04:03) NS (03/15/25 04:15) Vital Signs Date Time Temp Pulse Resp B/P (MAP) Pulse Ox O2 Delivery O2 Flow Rate FiO2 03/15/25 03:16 94.0 99 23 118/56 100 50 94.0 03/15/25 02:46 99 21 140/71 (94) 100 50 03/15/25 02:15 96.2 104 19 138/78 (98) 98 96.2 03/15/25 02:00 96.4 105 21 137/65 (89) 100 96.4 03/15/25 01:45 96.4 102 22 129/69 (89) 98 96.4 03/15/25 01:30 96.4 99 21 128/64 (85) 99 96.4 03/15/25 01:27 129/69 03/15/25 01:15 96.3 99 21 130/67 (88) 100 96.3 03/15/25 01:00 95.7 99 21 100 95.7 03/15/25 00:53 20 100 Mechanical Ventilator+ 50 50 03/15/25 00:45 95.2 93 21 100 95.2 03/15/25 00:30 132/74 03/15/25 00:00 93.2 87 14 132/74 (93) 96 93.2 03/14/25 23:50 90 25 199/74 (115) 100 50 03/14/25 23:45 93.2 89 18 122/64 (83) 96 93.2 03/14/25 23:30 93.2 89 18 122/64 (83) 96 93.2 03/14/25 23:15 93.2 89 18 122/64 (83) 96 93.2 03/14/25 23:00 93.2 89 18 122/64 (83) 96 93.2 03/14/25 22:45 93.2 89 18 122/64 (83) 96 93.2 03/14/25 22:30 93.2 94 20 140/86 (104) 98 93.2 03/14/25 22:15 93.2 94 20 140/86 (104) 98 93.2 03/14/25 22:00 93.2 84 12 127/91 (103) 98 93.2 03/14/25 22:00 20 99 Mechanical Ventilator+ 100 100 03/14/25 21:45 93.2 77 23 115/82 (93) 98 93.2 03/14/25 21:40 93.2 77 23 115/82 (93) 98 93.2 03/14/25 21:40 93 20 164/68 (100) 100 100 03/14/25 21:23 95 03/14/25 21:17 95 03/14/25 21:11 100 24 145/64 96 Laboratory Tests Test 03/14/25 21:34 Lactic Acid Level 0.7 mmol/L (0.4-2.0) White Blood Count 11.3 10^3/uL (4.4-10.8) H Medications Medications Dose Ordered Sig/Stacy Route Start Time Stop Time Status Last Admin Dose Admin Albuterol 2.5 mg ONCE ONCE NEB 03/14/25 21:30 03/14/25 21:31 DC 03/14/25 22:35 2.5 MG Albuterol 20 mg ONCE ONCE NEB 03/15/25 00:30 03/15/25 00:31 DC 03/15/25 00:53 20 MG Calcium Gluconate/ Sodium Chloride 50 ml @ 120 mls/hr ONCE ONCE IV 03/15/25 00:30 03/15/25 00:54 DC 03/15/25 01:34 120 MLS/HR Dexamethasone Sodium Phosphate 10 mg/Dextrose 51 ml @ 204 mls/hr ONCE ONCE IV 03/14/25 21:30 03/14/25 21:44 DC 03/14/25 23:16 204 MLS/HR Dextrose 50 ml ONCE ONCE IV 03/15/25 00:30 03/15/25 00:31 DC 03/15/25 01:40 50 ML Dextrose/Sodium Chloride 1,000 ml @ 125 mls/hr Q8H ONCE IV 03/14/25 21:30 03/15/25 05:29 03/14/25 22:58 125 MLS/HR Etomidate 20 mg ONCE ONCE IV 03/15/25 01:30 03/15/25 01:35 DC 03/15/25 01:47 20 MG Furosemide 20 mg ONCE ONCE IV 03/15/25 00:30 03/15/25 00:31 DC 03/15/25 01:27 20 MG Insulin Human Regular 10 units ONCE ONCE IV 03/15/25 00:30 03/15/25 00:31 DC 03/15/25 01:25 10 UNITS Ipratropium [place] 0.5 mg ONCE ONCE NEB 03/14/25 21:30 03/14/25 21:31 DC 03/14/25 22:35 0.5 MG Piperacillin Sod/ Tazobactam Sod 100 ml @ 100 mls/hr ONCE ONCE IV 03/14/25 21:30 03/14/25 22:29 DC 03/14/25 22:58 100 MLS/HR Propofol 100 ml @ 1.62 mls/hr Q24H IV 03/15/25 01:30 03/15/25 00:30 4.86 MLS/HR Sodium Bicarbonate 50 ml ONCE ONCE IV 03/14/25 21:30 03/14/25 21:31 DC 03/14/25 22:58 50 ML Sodium Bicarbonate 50 ml ONCE ONCE IV 03/15/25 00:30 03/15/25 00:31 DC 03/15/25 01:55 50 ML Sodium Chloride 1,000 ml @ 1,000 mls/hr Q1H ONCE IV 03/15/25 00:30 03/15/25 01:29 DC 03/15/25 01:15 1,000 MLS/HR Succinylcholine Chloride 100 mg ONCE ONCE IV 03/15/25 01:30 03/15/25 01:35 DC 03/15/25 01:48 100 MG Vancomycin HCl 250 ml @ 250 mls/hr ONCE ONCE IV 03/14/25 21:30 03/14/25 22:29 DC 03/15/25 00:35 250 MLS/HR Assessment/Plan Assessment/Plan Assessment Acute respiratory failure, intubated Acute renal failure Metabolic encephalopathy Amphetamine abuse Hypokalemia Plan Admit the patient to ICU to the hospitalist Nephrology consultation Hyperkalemia protocol Maintenance IV fluids Continue treatment per orders Total critical care time excluding procedures performed this 55 minutes. Plan discussed with: Other My Orders Orders - SOPHIA KELLEY Procedure Category Date Status Time Creatine Kinase LAB 03/15/25 Transmitted 04:03 Sod Chl 0.45% PHA 03/15/25 Transmitted (Sodi... W/Sodium 04:15 Abg W/ Co-Ox RT 03/15/25 Transmitted 05:30 Ceftriaxone Ivpb PHA 03/15/25 Transmitted Rocephin 09:00 Albuterol Medneb PHA 03/15/25 Transmitted (Ventolin Medneb) 04:15 *[facility] CONS 03/15/25 Transmitted [place] 04:03 Admit ADMIT 03/15/25 Transmitted 04:03 Ondansetron Hcl PHA 03/15/25 Transmitted (Zofran) 04:15 Complete Blood Count LAB 03/16/25 Verified 04:00 Comprehensive LAB 03/16/25 Verified Metabolic Panel 04:00 Echo 2d Mode Cardiac US 03/15/25 Transmitted DOP 04:03 Condition: Unstable [place] 03/15/25 Transmitted 04:03 Acetaminophen Tablet PHA 03/15/25 Transmitted (Tylenol Tablet) 04:15 Maintain Bed Rest [facility] 03/15/25 Transmitted 04:03 Sequential [facility] 03/15/25 Transmitted Compression Device Nitroglycerin [facility] 03/15/25 Transmitted Sublingual (Ntrostat 04:15 Morphine Sulfate [facility] 03/15/25 Transmitted Injection 04:15 Stat Ekg For Chest [facility] 03/15/25 Transmitted Pain 04:03 Notify Md Of Changes [facility] 03/15/25 Transmitted From Base 04:03 Land Development Manager For [facility] 03/15/25 Transmitted 24 Hours 04:03 Emergency Dysrhythmia [facility] 03/15/25 Transmitted Protocol 04:03 Rhythm Strips Once [facility] 03/15/25 Transmitted Every Shift 04:03 Oxygen By Nasal 03/15/25 Transmitted Cannula 04:03 NS PHA 03/15/25 Transmitted 04:15 Date of Service: Mar 15, 2025 Billing Provider: SOPHIA KELLEY Common Visit Codes: [id number] CARE 30-74 MIN SOPHIA KELLEY Mar 15, 2025 04:15
[2025-03-15] MEDS: SODIUM CHLORIDE 0.9% 500 ML IV ONE (04:28)
[2025-03-15] MEDS: SODIUM BICARB 8.4% 50Meq/50ml SYR Vial IV ONE (04:37)
[2025-03-15] MEDS: SODIUM BICARB 50mEq/50ml Vial 100 ML in SOD CHL 0.45% 1,000 ML IV SCH (04:42)
[2025-03-15 07:07] LABS: Base Excess -17.7 mmol/L (-2.0-3.0)
--- NOTE | 2025-03-15 10:43 | DVH ---
CLINICAL HISTORY: IVAN TECHNIQUE: Complete ultrasound exam of the kidneys and bladder was performed. COMPARISON: US LIVER on DOS: 12/05/23, US KIDNEY on DOS: 12/05/23 FINDINGS: The right kidney has increased echogenicity and measures 9.4 cm. There is no focal parenchymal abnorm ality or evidence for stone. There is no hydronephrosis. The left kidney has increased echogenicity and measures 9.9 cm. There is no focal parenchymal abnorm ality or evidence for stone. There is mild hydronephrosis. There is a Ambriz catheter within the bladder. There is moderate 7 mm bladder wall thickening. The thelma dder volume is 127 mL. IMPRESSION: Echogenic kidneys, compatible medical renal disease. Mild left hydronephrosis. Ambriz catheter within the bladder with volume of 127 mL. Thickened bladder wall. Please correlate with urine analysis.
[2025-03-15 10:53] LABS: Potassium 4.6 mmol/L (3.5-5.1)
[2025-03-15 10:54] LABS: Anion Gap 17 (5-15)
[2025-03-15 10:59] LABS: BUN/Creatinine Ratio 12.9 (10.0-20.0)
[2025-03-15 11:02] LABS: Calcium 7.4 mg/dL (8.7-10.4); Carbon Dioxide 13 mmol/L (20-31); Chloride 121 mmol/L (98-107); Glucose 326 mg/dL (74-106); Sodium 151 mmol/L (136-145)
[2025-03-15 11:03] LABS: Blood Urea Nitrogen 129 mg/dL (9-23)
--- NOTE | 2025-03-15 11:24 | DVHINCON2 ---
Date of service: Mar 15, 2025 Referring Physician Hospitalist Reason for Consultation Acute kidney injury History of Present Illness Unable to obtain history from patient as patient is intubated in the ICU 70-year-old female was found down by a home caregiver was noted to be in a disheveled unkept state was brought to the hospital for urgent cardiopulmonary evaluation. Patient was subsequently intubated and transferred to the ICU due to shock. Nephrology consulted due to abnormal electrolytes including a potassium greater than six and a BUN greater than 120. Previous hospitalization showed a reduced GFR of approximately 30%, grade 1 diastolic heart failure, a history of urinary obstruction with ureteral stricture and hydronephrosis Past Medical History as above hep C diastolic HF Allergies: Coded Allergies: Sulfa Antibiotics (Verified Allergy, Unknown, 12/04/23) Home Meds No Active Prescriptions or Reported Meds Current Medications Current Medications Medications (Trade) Dose Ordered Sig/Stacy Route PRN Reason Start Time Stop Time Status Last Admin Propofol 100 ml @ 1.62 mls/hr Q24H IV 03/15/25 01:30 03/15/25 00:30 Sodium Bicarbonate 100 ml/Sodium Chloride 1,100 ml @ 100 mls/hr Q11H IV 03/15/25 04:15 03/15/25 10:05 DC 03/15/25 04:42 Ceftriaxone Sodium 50 ml @ 100 mls/hr DAILY@09 IV 03/15/25 09:00 03/15/25 09:03 Albuterol (Ventolin Medneb) 2.5 mg Q6HPRN PRN NEB SHORTNESS OF BREATH 03/15/25 04:15 Ondansetron HCl (Zofran) 4 mg Q4HP PRN IV NAUSEA / VOMITING 03/15/25 04:15 Acetaminophen (Tylenol Tablet) 650 mg Q6HP PRN PO PAIN SCALE 1-3 OR TEMP>100.4 03/15/25 04:15 Nitroglycerin (Ntrostat Sublingual) 0.4 mg Q5MINP PRN SL FOR CHEST PAIN 03/15/25 04:15 Morphine Sulfate 2 mg Q30M PRN IV FOR CHEST PAIN 03/15/25 04:15 Sodium Bicarbonate 150 ml/Dextrose 1,150 ml @ 125 mls/hr Q9H12M IV 03/15/25 10:00 Family History: FH: lung disease G8 MOTHER Review of Systems Can not obtain due to critical illness H&P Exam Vital Signs/I&O Vital Sign Date Time Temp Pulse Resp B/P (MAP) Pulse Ox O2 Delivery O2 Flow Rate FiO2 03/15/25 09:16 92 22 111/63 (79) 92 30 03/15/25 07:30 98.4 98.4 03/15/25 00:53 Mechanical Ventilator+ Intake and Output 03/14/25 03/15/25 19:00 07:00 Intake Total 3001.48 ml Output Total 1475 ml Balance 1526.48 ml Intake IV Total 3001.48 ml Output Urine Total 1475 ml Physical Exam Malnourished ill-appearing female Intubated Not on pressors Frail appearing no edema noted muscle wasting abdomen is soft regular rate and rhythm Ambriz catheter has cloudy urine Labs/Diagnostic Data Labs/Diagnostic Data Laboratory Tests Test 03/15/25 10:15 03/15/25 06:42 03/15/25 05:04 03/15/25 03:49 Range/Units Sodium Level 151 #H 136-145 mmol/L Potassium Level 4.6 5.0 3.5-5.1 mmol/L Chloride Level 121 H 98-107 mmol/L Carbon Dioxide Level 13 L 20-31 mmol/L Anion Gap 17 H 5-15 Blood Urea Nitrogen 129 *H 9-23 mg/dL Creatinine 10.03 *H 0.550-1.02 mg/dL Glomerular Filtration Rate Calc 4 >90 mL/min BUN/Creatinine Ratio 12.9 10.0-20.0 Serum Glucose 326 H 74-106 mg/dL Calcium Level 7.4 L 8.7-10.4 mg/dL Blood Gas Specimen Type Arterial Blood Gas Sample Site Left radial Blood Gas Patient Temperature 37.0 Arterial Blood Date Drawn [id number] Arterial Blood pH 7.138 *L 7.350-7.450 Arterial Blood Partial Pressure CO2 30.0 L 32.0-45.0 mmHg Arterial Blood Partial Pressure O2 230.0 H 83.0-108.0 mmHg Arterial Blood HCO3 9.9 L 21.0-28.0 mmol/L Arterial Blood Oxygen Saturation 99.5 H 94.0-98.0 % Arterial Blood Base Excess -17.7 L -2.0-3.0 mmol/L Arterial Blood Oxyhemoglobin 97.9 94.0-98.0 % Arterial Blood Carboxyhemoglobin 0.9 0.5-1.5 % Arterial Blood Methemoglobin 0.7 0.0-1.5 % Klilian Test Modified Blood Gas Total Hemoglobin 8.80 L 12.0-16.0 g/dL Blood Gas Set Respiration Rate 20.0 Blood Gas Modality Vent - ac FiO2 % 50.0 Blood Gas Tidal Volume 500.0 Blood Gas PEEP or CPAP 5.0 Blood Gas Critical Value Read Back Yes Blood Gas Notified Whom Dr snigh Blood Gas Notified Time [id number] Blood Gas Notified By Janette faustin POC Glucose 332 H 70-106 mg/dl Creatine Kinase 399 H 34-145 U/L Test 03/15/25 01:19 03/15/25 00:40 03/15/25 00:36 03/14/25 22:50 Range/Units POC Glucose 249 H 70-106 mg/dl Blood Gas Specimen Type Arterial Arterial Blood Gas Sample Site Right radial Right radial Blood Gas Patient Temperature 37.0 37.0 Arterial Blood Date Drawn [id number] Arterial Blood pH 7.027 *L 6.922 *L 7.350-7.450 Arterial Blood Partial Pressure CO2 31.5 L 32.9 32.0-45.0 mmHg Arterial Blood Partial Pressure O2 242.4 H 512.7 *H 83.0-108.0 mmHg Arterial Blood HCO3 8.1 L 6.6 L 21.0-28.0 mmol/L Arterial Blood Oxygen Saturation 99.4 H 99.7 H 94.0-98.0 % Arterial Blood Base Excess -21.4 L -24.5 L -2.0-3.0 mmol/L Arterial Blood Oxyhemoglobin 98.6 H 99.0 H 94.0-98.0 % Arterial Blood Carboxyhemoglobin 0.6 0.4 L 0.5-1.5 % Arterial Blood Methemoglobin 0.2 0.3 0.0-1.5 % Killian Test Modified Modified Blood Gas Total Hemoglobin 9.50 L 8.90 L 12.0-16.0 g/dL Blood Gas Set Respiration Rate 20.0 20.0 Blood Gas Modality Vent - ac Vent - ac FiO2 % 50.0 100.0 Blood Gas Tidal Volume 500.0 500.0 Blood Gas PEEP or CPAP 5.0 5.0 Blood Gas Critical Value Read Back Yes Yes Blood Gas Notified Whom socrates Pickard Dr, c Blood Gas Notified Time [id number] Blood Gas Notified By roxie Campbell, roxie Sodium Level 146 H 136-145 mmol/L Potassium Level 6.2 *H 3.5-5.1 mmol/L Chloride Level 120 H 98-107 mmol/L Carbon Dioxide Level < 10 *L 20-31 mmol/L Anion Gap 16.79645 H 5-15 Blood Urea Nitrogen 129 *H 9-23 mg/dL Creatinine 11.81 *H 0.550-1.02 mg/dL Glomerular Filtration Rate Calc 3 >90 mL/min BUN/Creatinine Ratio 10.9 10.0-20.0 Serum Glucose 250 H 74-106 mg/dL Calcium Level 7.7 L 8.7-10.4 mg/dL Troponin I High Sensitivity 36 *H </=34 ng/L Test 03/14/25 22:49 03/14/25 22:08 03/14/25 21:34 03/14/25 21:20 Range/Units Troponin I High Sensitivity 39 *H 39 *H </=34 ng/L Urine Color Brown H Yellow Urine Clarity Cloudy H Clear Urine pH 5.5 5.0-9.0 Urine Specific [place] 1.011 1.001-1.035 Urine Protein 1+ H Negative Urine Ketones Negative Negative Urine Blood 2+ H Negative /uL Urine Nitrite Negative Negative Urine Bilirubin Negative Negative Urine Urobilinogen Normal Negative mg/dL Urine Leukocyte Esterase 1+ H Negative /uL Urine Glucose Normal Normal mg/dL Urine Opiates Screen Neg NEGATIVE Urine Fentanyl Screen Neg NEGATIVE Urine Barbiturates Screen Neg NEGATIVE Urine Phencyclidine Screen Neg NEGATIVE Urine Amphetamines Screen Pos NEGATIVE Urine Benzodiazepines Screen Neg NEGATIVE Urine Cocaine Screen Neg NEGATIVE Urine Cannabinoids Screen Neg NEGATIVE White Blood Count 11.3 H 4.4-10.8 10^3/uL Red Blood Count 3.04 L 4.0-5.20 10^6/uL Hemoglobin 8.9 L 12.2-16.2 g/dL Hematocrit 29.0 L 36.0-46.0 % Mean Corpuscular Volume 95.3 80.0-100.0 fL Mean Corpuscular Hemoglobin 29.3 28.0-32.0 pg Mean Corpuscular Hemoglobin Concent 30.8 L 32.0-36.0 g/dL Red Cell Distribution Width 19.2 H 11.8-14.3 % Platelet Count 382 140-450 10^3/uL Mean Platelet Volume 7.7 6.9-10.8 fL Neutrophils (%) (Auto) 37.0-80.0 % Lymphocytes (%) (Auto) 10.0-50.0 % Monocytes (%) (Auto) 0.0-12.0 % Basophils (%) (Auto) 0.0-2.0 % Neutrophils # (Auto) 1.6-8.6 10 ^3/uL Lymphocytes # (Auto) 0.4-5.4 10 ^3/uL Monocytes # (Auto) 0-1.3 10 ^3/uL Differential Total Cells Counted 100.0 100 Neutrophils % (Manual) 73 37.0-80.0 Band Neutrophils % (Manual) 11 Lymphocytes % (Manual) 6 L 10.0-50.0 Monocytes % (Manual) 10 0-12 Eosinophils % (Manual) 0 0-7 Basophils % (Manual) 0 0.0-2.0 Metamyelocytes % (manual) 0 Myelocytes % (Manual) 0 Promyelocytes % (Manual) 0 Blast Cells % (Manual) 0 Reactive Lymphocytes 0 Platelet Estimate Adequate Sodium Level 144 136-145 mmol/L Potassium Level 6.7 *H 3.5-5.1 mmol/L Chloride Level 120 H 98-107 mmol/L Carbon Dioxide Level < 10 *L 20-31 mmol/L Anion Gap 14.91782 5-15 Blood Urea Nitrogen 127 *H 9-23 mg/dL Creatinine 12.72 *H 0.550-1.02 mg/dL Glomerular Filtration Rate Calc 3 >90 mL/min BUN/Creatinine Ratio 10.0 10.0-20.0 Serum Glucose 250 H 74-106 mg/dL Lactic Acid Level 0.7 0.4-2.0 mmol/L Calcium Level 8.1 L 8.7-10.4 mg/dL Magnesium Level 2.9 H 1.6-2.6 mg/dL Total Bilirubin < 0.2 L 0.2-1.0 mg/dL Aspartate Amino Transferase (AST) 27 13-40 U/L Alanine Aminotransferase (ALT) 19 7-40 U/L Alkaline Phosphatase 90 46-116 U/L B-Type Natriuretic Peptide 134.64 0-100 pg/mL Total Protein 7.6 5.7-8.2 g/dL Albumin 4.0 3.2-4.8 g/dL Lipase 435 H 12-53 U/L Thyroid Stimulating Hormone (TSH) 1.85 0.55-4.78 uIU/mL Plasma/Serum Blood Alcohol < 3.0 <10 mg/dL Blood Gas Specimen Type Arterial Blood Gas Sample Site Right radial Blood Gas Patient Temperature 37.0 Arterial Blood Date Drawn [id number] Arterial Blood pH 6.922 *L 7.350-7.450 Arterial Blood Partial Pressure CO2 27.1 L 32.0-45.0 mmHg Arterial Blood Partial Pressure O2 319.1 *H 83.0-108.0 mmHg Arterial Blood HCO3 5.5 L 21.0-28.0 mmol/L Arterial Blood Oxygen Saturation 99.6 H 94.0-98.0 % Arterial Blood Base Excess -25.5 L -2.0-3.0 mmol/L Arterial Blood Oxyhemoglobin 98.7 H 94.0-98.0 % Arterial Blood Carboxyhemoglobin 0.5 0.5-1.5 % Arterial Blood Methemoglobin 0.4 0.0-1.5 % Killian Test Modified Blood Gas Total Hemoglobin 9.10 L 12.0-16.0 g/dL Blood Gas Liter Flow 15.00 Blood Gas Modality Mask - nrb FiO2 % 100.0 Blood Gas Critical Value Read Back Yes Blood Gas Notified Whom socrates Pickard Blood Gas Notified Time [id number] Blood Gas Notified By Jaci jara rrt Assessment Acute kidney injury hemodynamically mediated likely in the setting of shock suspect septic shock Recommend IV fluid hydration Pressors to maintain mean arterial pressure greater than 65 at all times Monitoring urinary output Strict Is&Os Chronic kidney disease unspecified baseline unknown but assumed based on previous hospitalization to be moderate kidney function stage III Avoid contrast studies Avoid nonsteroidal anti-inflammatory drugs Altered mental status and respiratory failure Acute methamphetamine abuse This believed to be due to septic shock Vent per ICU Septic shock Blood culture Urine culture IV antibiotics are ordered recommend renal dosing giving diminished GFR Hyperkalemia Metabolic acidosis Hypernatremia Above electrolyte abnormalities will be corrected with IV fluids currently recommended D5W with three amps sodium bicarbonate at a rate of 125 cc/hour Anemia multifactorial in the setting of chronic kidney disease as well as acute inflammation Recommend PRBC if hemoglobin drops below eight we will obtain iron panel at this time Patient's urine output has increased to approximately 1 L in the past 4 hours, guarded prognosis we will need close follow-up to determine if dialysis is required in the acute. However at this time we will hold if response to medical therapy this will require aggressive electrolyte replacement and close monitoring of urinary output Critically ill multi medical conditions guarded prognosis critical care time 75 minutes Plan discussed with: Other MUNIRA PETER MD Mar 15, 2025 11:24
--- NOTE | 2025-03-15 11:55 | DVHSR ---
APPROVED REPORT EXAM: Two-dimensional and M-mode echocardiogram with Doppler and color Doppler. Blood Pressure: 114/69 mmHg INDICATION EF RISK FACTORS Height: 5'6", Weight: 119 DIMENSIONS LVDd3.7 (3.8-5.7cm)LA (2D)3.0 (1.9-4.0cm)Aortic Root (2.0-3.7cm) LVDs2.5 (2.5-4.0cm)LA (MM) (1.9-4.0cm)Aortic Cusp Exc (1.5-2.0cm) EF (%) 60.0 (55-70%)Rt. Atrium2.8 (1.9-4.0cm)Asc. Aorta cm IVSd0.9 (0.7-1.1cm)RV (D) (1.8-2.4cm) Mitral Valve MitralMitral Stenosis E wave0.53m/sMV Mean GR.mmHg A wave1.03m/sMV Peak GR.mmHg E/A ratio0.52D MVAcm2 DECEL [id number] 1/2 Timems Aortic Valve Aortic ValveAortic Stenosis V11.18m/Axel Mean GR.9mmHg V22.13m/Axel Peak GR.18mmHg LVOT Diameter2.0 (1.8-2.4cm)Doppler AVA1.74cm2 Tricuspid Valve TR Velocity2.49m/s [id number] Other Information Quality : Technically LimitedRhythm : Technically limited study due to on vent and body habitus. Conclusion lvef 65% normal rv function left atrium enlarged
[2025-03-15] MEDS: SODIUM BICARB 50mEq/50ml Vial 150 ML in D5W 5% 1,000 ML IV SCH (12:16)
[2025-03-15] MEDS: BUMETANIDE 2.5mg/10ml (0.25 mg/ml) INJ IV ONE (13:50)
[2025-03-15 14:29] LABS: Potassium 4.6 mmol/L (3.5-5.1)
[2025-03-15 14:30] LABS: Anion Gap 17 (5-15)
[2025-03-15 14:31] LABS: Calcium 7.1 mg/dL (8.7-10.4); Carbon Dioxide 14 mmol/L (20-31); Chloride 121 mmol/L (98-107); Sodium 152 mmol/L (136-145)
[2025-03-15 14:35] LABS: BUN/Creatinine Ratio 15.5 (10.0-20.0)
[2025-03-15 14:37] LABS: Glucose 270 mg/dL (74-106)
[2025-03-15 14:38] LABS: Blood Urea Nitrogen 146 mg/dL (9-23)
--- NOTE | 2025-03-15 15:18 | DVHPN2 ---
Progress Note Date Seen: Mar 15, 2025 Medical Necessity Reason Pt with a Central, PICC or Fol: Yes The following are medically ne: Vigil Catheter Reason for vigil catheter: Strict I&O Subjective Patient reports: No new complaints Review of Systems: HEENT:Normal, CVS:Normal, RESPIRATORY:Normal, GI:Normal, :Normal, MSK:Normal, NEURO:Normal Objective vital signs Vital Sign Date Time Temp Pulse Resp B/P (MAP) Pulse Ox O2 Delivery O2 Flow Rate FiO2 03/15/25 14:00 20 93 Mechanical Ventilator+ 30 30 03/15/25 14:00 88 03/15/25 13:51 116/63 (80) 03/15/25 07:30 98.4 98.4 Total Intake and Output 03/14/25 03/14/25 03/15/25 15:00 23:00 07:00 Intake Total 3001.48 ml Output Total 1475 ml Balance 1526.48 ml medications Current Medications Medications Dose Ordered Sig/Stacy Route Start Time Stop Time Status Last Admin Dose Admin Propofol 100 ml @ 1.62 mls/hr Q24H IV 03/15/25 01:30 03/15/25 13:49 12.96 MLS/HR Ceftriaxone Sodium 50 ml @ 100 mls/hr DAILY@09 IV 03/15/25 09:00 03/15/25 09:03 100 MLS/HR Albuterol 2.5 mg Q6HPRN PRN NEB 03/15/25 04:15 Ondansetron HCl 4 mg Q4HP PRN IV 03/15/25 04:15 Acetaminophen 650 mg Q6HP PRN PO 03/15/25 04:15 Nitroglycerin 0.4 mg Q5MINP PRN SL 03/15/25 04:15 Morphine Sulfate 2 mg Q30M PRN IV 03/15/25 04:15 Sodium Bicarbonate 150 ml/Dextrose 1,150 ml @ 125 mls/hr Q9H12M IV 03/15/25 10:00 03/15/25 12:16 125 MLS/HR Examination: GENERAL:Normal, HEENT:Normal, NECK:Normal, LUNGS:Normal, LUNGS:Abnormal (intubated), CVS:Normal, ABDOMEN:Normal, MSK:Normal, SKIN:Normal, NEURO:Normal, :Normal laboratory and microbiology Laboratory Tests 03/15/25 14:00 03/14/25 21:34 Test 03/15/25 14:00 Range/Units Serum Glucose 270 H 74-106 mg/dL Problem List/Assessment/Plan Problem List/Assessment/Plan #1 acute resp failure: cont acv #2 severe metabolic acidosis #3 acute renal failure /atn: ivf #4 drug abuse with amphetamines #5 hyperkalemia: improved #6 hypernatremia: free water #7 uti: iv rocephin #8 anemia #9 nstemi ?type 2 Plan discussed with: Other (rn) My Orders My Orders Orders - SOPHIA RUDD MD Procedure Category Date Status Time * Manager Qa CONS 03/15/25 Transmitted Consult 14:15 Pantoprazole PHA 03/15/25 Transmitted (Protonix) 15:15 Pantoprazole PHA 03/16/25 Transmitted (Protonix) 10:00 Heparin Sodium PHA 03/15/25 Transmitted (Porcine) 22:00 Free Water PHA 03/15/25 Transmitted 18:00 Complete Blood Count LAB 03/16/25 Verified 06:00 Comprehensive LAB 03/16/25 Verified Metabolic Panel 06:00 Acute Hepatitis Panel LAB 03/15/25 Transmitted 15:11 Chest Portable XY 03/16/25 Transmitted 06:00 Abg W/ Co-Ox RT 03/16/25 Transmitted 06:00 PTPTT LAB 03/16/25 Verified 04:00 Critical Care Time (mins): 81 (critical care time excluding procedures is 81 mins) Date of Service: Mar 15, 2025 Billing Provider: SOPHIA RUDD MD Common Visit Codes: [id number]-[id number] CARE 30-74 MIN, [id number] CARE-EACH +30MIN SOPHIA RUDD MD Mar 15, 2025 15:18
[2025-03-15 15:53] LABS: Base Excess -11.9 mmol/L (-2.0-3.0)
[2025-03-15 16:44] LABS: Hepatitis B Surface Antigen Negative (Negative)
[2025-03-15 17:15] LABS: Hepatitis C Antibody Positive (Negative)
--- NOTE | 2025-03-15 18:06 | DVHNC2 ---
Central Line Recorder of insertion practice: Child Welfare Director Occupation of radio engineer: Attending Physician Indication: Inability to obtain IV Room prepared for procedure: Yes Child Welfare Director performed hand hygien: Yes Maximal sterile barrier precau: Mask/Eye shield, Sterile gown, Cap, Sterlie gloves, Large sterlie drape Skin Preparation: Chlorhexidine gluconate Skin preparation completely dr: Yes Insertion site: Right, Internal jugular Central line catheter type: [id number] dialysis Number of lumens: 3 Central line exchanged over a: No Antiseptic ointment applied to: No Post Assessment: Chest X-Ray Date of Service: Mar 15, 2025 Billing Provider: SOPHIA RUDD MD Common Visit Codes: PROCEDURE ONLY Procedure Codes: [id number] NON-TUNNEL CV CATH SOPHIA URDD MD Mar 15, 2025 18:06
[2025-03-15] MEDS: IPRATROPIUM BROM 0.5 MG/2.5ML INH SOL NEB SCH (18:17)
[2025-03-15] MEDS: ALBUTEROL SULF 2.5 MG/0.5ML(0.5%) NEB SOLN NEB SCH (18:17)
--- NOTE | 2025-03-15 18:43 | DVH ---
CHEST RADIOGRAPH Indication: central line placement Technique: XY CHEST PORTABLE Comparison: 03/14/2025 FINDINGS: Right IJ catheter tip projects over the SVC. Nasogastric tube projects towards stomach. En dotracheal tube tip projects 4.7 cm above the mirtha. The cardiac silhouette is unremarkable. The lungs demonstrate no pulmonary airspace consolidation. Th e pulmonary vasculature is unremarkable. There is no pleural effusion. There is no pneumothorax. IMPRESSION: No pulmonary airspace consolidation.
[2025-03-15] MEDS: PANTOPRAZOLE 40 MG/10 ML VIAL INJ IV ONE (19:34)
[2025-03-15] MEDS: FREE WATER GT SCH (19:34)
[2025-03-15] MEDS: HEPARIN SODIUM (PORCINE) 5000 UNITS/ML 1ML VIAL SC SCH (21:48)
[2025-03-16] VITALS (114 sets, daily range): BP systolic 79–124; BP diastolic 46–73; PULSE 86–178; RESP 0–37; TEMP 97.8–99; O2SAT 91–100
[2025-03-16 04:22] LABS: Hemoglobin 8.0 g/dL (12.2-16.2)
[2025-03-16 04:26] LABS: Hematocrit 23.5 % (36.0-46.0); Mean Corpuscular Hemoglobin 29.7 pg (28.0-32.0); Mean Corpuscular Volume 87.7 fL (80.0-100.0); Nucleated Red Blood Cells % 0.3 %
[2025-03-16 04:34] LABS: Alanine Aminotransferase 13 U/L (7-40); Albumin 3.4 g/dL (3.2-4.8); Alkaline Phosphatase 80 U/L (46-116); Anion Gap 18 (5-15); BUN/Creatinine Ratio 14.2 (10.0-20.0); Carbon Dioxide 21 mmol/L (20-31); Potassium 3.7 mmol/L (3.5-5.1); Total Protein 6.6 g/dL (5.7-8.2)
[2025-03-16 04:37] LABS: INR 1.04 (0.9-1.15); Partial Thromboplastin Time 29.0 SEC (24.5-34.5); Prothrombin Time 11.0 sec (9.3-11.8)
[2025-03-16 04:41] LABS: Bilirubin, Total < 0.2 mg/dL (0.2-1.0); Calcium 7.2 mg/dL (8.7-10.4); Chloride 112 mmol/L (98-107); Glucose 255 mg/dL (74-106); Sodium 151 mmol/L (136-145)
[2025-03-16 04:42] LABS: Blood Urea Nitrogen 113 mg/dL (9-23)
--- NOTE | 2025-03-16 05:05 | DVH ---
CHEST RADIOGRAPH Indication: resp failure Technique: Single frontal view of the chest was obtained COMPARISON: XY CHEST PORTABLE on DOS: 03/15/25, XY CHEST XRAY 1 VIEW on DOS: 03/14/25, XY CHEST XRAY 1 VIEW on DOS: 12/04/23 FINDINGS: Lines and Tubes: Slight interval advancement of the endotracheal tube such that the tip now projects approximately 3.7 cm above the level of the mirtha. Remaining lines and tubes unchanged. Lungs: Clear Pleura: No effusion. No pneumothorax. Cardiomediastinal contours: Unremarkable Bones: Unremarkable IMPRESSION: 1. Slight interval advancement of the endotracheal tube such that the tip now projects approximately 3.7 cm above the level of the mirtha. Remaining lines and tubes unchanged. 2. No evidence of acute cardiopulmonary process.
[2025-03-16 07:54] LABS: Base Excess -1.1 mmol/L (-2.0-3.0)
--- NOTE | 2025-03-16 09:50 | DVHPN2 ---
Progress Note Date Seen: Mar 16, 2025 Medical Necessity Reason Pt with a Central, PICC or Fol: Yes The following are medically ne: Central Line, Vigil Catheter Reason for vigil catheter: Strict I&O Subjective Changes from previous H/P or p: Changes (UOP increased) Objective vital signs Vital Sign Date Time Temp Pulse Resp B/P (MAP) Pulse Ox O2 Delivery O2 Flow Rate FiO2 03/16/25 08:24 100 24 97/56 (70) 100 30 03/16/25 06:00 Mechanical Ventilator+ 03/16/25 04:00 98.2 98.2 Total Intake and Output 03/15/25 03/15/25 03/16/25 15:00 23:00 07:00 Intake Total 1254.4 ml 1100.65 ml 1216.42 ml Output Total 1400 ml 2300 ml 800 ml Balance -145.6 ml -1199.35 ml 416.42 ml medications Current Medications Medications Dose Ordered Sig/Stacy Route Start Time Stop Time Status Last Admin Dose Admin Propofol 100 ml @ 1.62 mls/hr Q24H IV 03/15/25 01:30 03/15/25 21:45 11.34 MLS/HR Ceftriaxone Sodium 50 ml @ 100 mls/hr DAILY@09 IV 03/15/25 09:00 03/15/25 09:03 100 MLS/HR Albuterol 2.5 mg Q6HPRN PRN NEB 03/15/25 04:15 Ondansetron HCl 4 mg Q4HP PRN IV 03/15/25 04:15 Acetaminophen 650 mg Q6HP PRN PO 03/15/25 04:15 Nitroglycerin 0.4 mg Q5MINP PRN SL 03/15/25 04:15 Morphine Sulfate 2 mg Q30M PRN IV 03/15/25 04:15 Sodium Bicarbonate 150 ml/Dextrose 1,150 ml @ 125 mls/hr Q9H12M IV 03/15/25 10:00 03/16/25 05:22 125 MLS/HR Pantoprazole Sodium 40 mg DAILY IV 03/16/25 10:00 Heparin Sodium (Porcine) 5,000 units Q12HR SC 03/15/25 22:00 03/15/25 21:48 5,000 UNITS Purified Water 200 ml Q4HR GT 03/15/25 18:00 03/16/25 06:09 200 ML Albuterol 2.5 mg Q6HR NEB 03/15/25 18:00 03/16/25 06:32 2.5 MG Ipratropium [place] 0.5 mg Q6HR NEB 03/15/25 18:00 03/16/25 06:32 0.5 MG Examination: GENERAL:Abnormal, LUNGS:Abnormal, SKIN:Abnormal laboratory and microbiology Laboratory Tests 03/16/25 03:41 Test 03/16/25 03:41 Range/Units Serum Glucose 255 H 74-106 mg/dL Microbiology Date/Time Source Procedure Growth Status 03/14/25 22:10 Trachea Gram Stain Pending Resulted 03/14/25 22:10 Trachea Respiratory Culture - Preliminary Resulted 03/14/25 21:34 Blood Blood Culture - Preliminary NO GROWTH AFTER 24 HOURS OF INCUBATION. Resulted Problem List/Assessment/Plan Problem List/Assessment/Plan Acute kidney injury hemodynamically mediated likely in the setting of shock Recommend IV fluid hydration Pressors to maintain mean arterial pressure greater than 65 at all times Monitoring urinary output Strict Is&Os Chronic kidney disease unspecified baseline unknown but assumed based on previous hospitalization to be moderate kidney function stage III Avoid contrast studies Avoid nonsteroidal anti-inflammatory drugs Altered mental status and respiratory failure Acute methamphetamine abuse Vent per ICU Septic shock Blood culture Urine culture IV antibiotics are ordered recommend renal dosing giving diminished GFR Hyperkalemia resolved Metabolic acidosis resolved Hypernatremia -> change sodium bicarb drip to 0.45%NACL Acute respiratory failure COPD excerbation Anemia multifactorial in the setting of chronic kidney disease as well as acute inflammation Recommend PRBC if hemoglobin drops below eight we will obtain iron panel at this time Patient's urine output has increased 4.5L in 24 hours with slow improvement in electrolytes and cr there is no emergent indication for dialysis at this time Plan discussed with: Other (nurse) My Orders My Orders Orders - MUNIRA PETER MD Procedure Category Date Status Time D5w 5% (Dextrose 5%) PHA 03/15/25 In Process W/Sodium Bicarb 50m 10:00 Urine Bacterial NATHALIA 03/15/25 In Process Culture 14:10 Strict I & O MENDOZA 03/15/25 In Process 13:18 Critical Care Time (mins): 40 MUNIRA PETER MD Mar 16, 2025 09:50
[2025-03-16] MEDS: PANTOPRAZOLE 40 MG/10 ML VIAL INJ IV SCH (09:56)
[2025-03-16] MEDS: SOD CHL 0.45% 1,000 ML IV SCH (10:55)
--- NOTE | 2025-03-16 14:46 | DVHPN2 ---
Progress Note Date Seen: Mar 16, 2025 Medical Necessity Reason Pt with a Central, PICC or Fol: Yes The following are medically ne: Central Line, Vigil Catheter Reason for vigil catheter: Strict I&O Subjective Patient reports: No new complaints Review of Systems: HEENT:Normal, CVS:Normal, RESPIRATORY:Normal, GI:Normal, :Normal, MSK:Normal, NEURO:Normal Objective vital signs Vital Sign Date Time Temp Pulse Resp B/P (MAP) Pulse Ox O2 Delivery O2 Flow Rate FiO2 03/16/25 14:00 30 03/16/25 14:00 107 24 99/63 (75) 97 03/16/25 14:00 Mechanical Ventilator+ 03/16/25 12:00 97.8 97.8 Total Intake and Output 03/15/25 03/15/25 03/16/25 14:59 22:59 06:59 Intake Total 1230.98 ml 1102.31 ml 1352.76 ml Output Total 1400 ml 2300 ml 800 ml Balance -169.02 ml -1197.69 ml 552.76 ml medications Current Medications Medications Dose Ordered Sig/Stacy Route Start Time Stop Time Status Last Admin Dose Admin Propofol 100 ml @ 1.62 mls/hr Q24H IV 03/15/25 01:30 03/16/25 10:07 11.34 MLS/HR Ceftriaxone Sodium 50 ml @ 100 mls/hr DAILY@09 IV 03/15/25 09:00 03/16/25 09:56 100 MLS/HR Albuterol 2.5 mg Q6HPRN PRN NEB 03/15/25 04:15 Ondansetron HCl 4 mg Q4HP PRN IV 03/15/25 04:15 Acetaminophen 650 mg Q6HP PRN PO 03/15/25 04:15 Nitroglycerin 0.4 mg Q5MINP PRN SL 03/15/25 04:15 Morphine Sulfate 2 mg Q30M PRN IV 03/15/25 04:15 Pantoprazole Sodium 40 mg DAILY IV 03/16/25 10:00 03/16/25 09:56 40 MG Heparin Sodium (Porcine) 5,000 units Q12HR SC 03/15/25 22:00 03/16/25 10:09 5,000 UNITS Purified Water 200 ml Q4HR GT 03/15/25 18:00 03/16/25 09:56 200 ML Albuterol 2.5 mg Q6HR NEB 03/15/25 18:00 03/16/25 11:16 2.5 MG Ipratropium [place] 0.5 mg Q6HR NEB 03/15/25 18:00 03/16/25 11:15 0.5 MG Sodium Chloride 1,000 ml @ 60 mls/hr [id number] IV 03/16/25 09:45 03/16/25 10:55 60 MLS/HR Examination: GENERAL:Normal, HEENT:Normal, NECK:Normal, LUNGS:Normal, LUNGS:Abnormal (intubated), CVS:Normal, ABDOMEN:Normal, MSK:Normal, SKIN:Normal, NEURO:Normal, :Normal laboratory and microbiology Laboratory Tests 03/16/25 03:41 Test 03/16/25 03:41 Range/Units Serum Glucose 255 H 74-106 mg/dL Microbiology Date/Time Source Procedure Growth Status 03/15/25 12:44 Nose MRSA Screen - Final Complete 03/14/25 21:34 Blood Blood Culture - Preliminary NO GROWTH AFTER 24 HOURS OF INCUBATION. Resulted Problem List/Assessment/Plan Problem List/Assessment/Plan #1 acute resp failure: cont acv #2 severe metabolic acidosis #3 acute renal failure /atn: ivf #4 drug abuse with amphetamines #5 hyperkalemia: improved #6 hypernatremia: free water #7 uti: iv rocephin #8 anemia #9 nstemi ?type 2 #10 copd: bronchodilators Plan discussed with: Other (rn) My Orders My Orders Orders - SOPHIA RUDD MD Procedure Category Date Status Time Pantoprazole PHA 03/16/25 In Process (Protonix) 10:00 Heparin Sodium PHA 03/15/25 In Process (Porcine) 22:00 Free Water PHA 03/15/25 In Process 18:00 Chest Portable XY 03/16/25 Resulted 06:00 Abg W/ Co-Ox RT 03/16/25 Logged 06:00 Albuterol Medneb PHA 03/15/25 In Process (Ventolin Medneb) 18:00 Ipratropium Medneb PHA 03/15/25 In Process (Atrovent Medneb) 18:00 Abg W/ Co-Ox RT 03/15/25 Logged 15:41 Ventilator Orders RT 03/15/25 Transmitted 15:53 Us Guided Vascular US 03/15/25 Logged Access 17:08 Chest Portable XY 03/15/25 Resulted 17:54 Notify Provider NOTICE 03/16/25 Transmitted Malnutrition 11:38 Tube Feeding NOURISH 03/16/25 Transmitted 11:38 Dietary Evaluation Review Recommendations by RD: Increase Calorie Intake Comments: Pt meets criteria for Severe Protein-Calorie Malnutrition in the setting of chronic illness based on moderate muscle wasting and moderate fat depletion Nutrition Recommendation 1) TF Vital AF 1.2Cal @ 40ml/hr x 24hr (goal rate). TF @ goal volume along with Propofol provide 1450 kcal (100% energy needs), 72 gm protein (100% protein needs), 779 ml free water. 2) Water flush 170 ml Q6H if allowed, adjust PRN 3) TPN if NPO >7 days 4) Monitor NPO status, lab values, wt trend, I/O Expected Outcomes/Goals: Intakes to meet >75% estimated needs Lab values to improve Fu 2-3 days Body Fat Depletion (Severe): Mod to Severe Depletion Muscle Mass (Severe): Mod to Severe Depletion Fluid Accumulation (N/A): N/A Protein Calorie Malnutrition: Severe Is there a minimum of two crit: Yes Critical Care Time (mins): 51 (critical care time excluding procedures is 51 mins) Date of Service: Mar 16, 2025 Billing Provider: SOPHIA RUDD MD Common Visit Codes: [id number] CARE 30-74 MIN SOPHIA RUDD MD Mar 16, 2025 14:46
[2025-03-16] MEDS ORDERED: Vital AF 1.2 Cal 1 liter bottle GT SCH (15:00)
[2025-03-16] MEDS: fentaNYL Drip 2500mCg/250mlNS 250 ML IV SCH (17:10)
[2025-03-16] MEDS: Nepro With Carb Steady 1 Liter Bottle GT SCH (21:38)
[2025-03-17] VITALS (107 sets, daily range): BP systolic 83–136; BP diastolic 49–82; PULSE 73–117; RESP 13–24; TEMP 97.7–98.9; O2SAT 88–100
[2025-03-17] MEDS: SODIUM CHLORIDE 0.9% 500 ML IV ONE (03:22)
[2025-03-17 04:03] LABS: Hematocrit 23.2 % (36.0-46.0); Hemoglobin 7.7 g/dL (12.2-16.2); Mean Corpuscular Hemoglobin 29.3 pg (28.0-32.0); Nucleated Red Blood Cells % 0.1 %
[2025-03-17 04:06] LABS: Mean Corpuscular Volume 88.3 fL (80.0-100.0)
[2025-03-17 04:09] LABS: Anion Gap 13 (5-15); Carbon Dioxide 27 mmol/L (20-31)
[2025-03-17 04:13] LABS: Calcium 7.0 mg/dL (8.7-10.4); Chloride 109 mmol/L (98-107); Potassium 3.3 mmol/L (3.5-5.1); Sodium 149 mmol/L (136-145)
[2025-03-17 04:14] LABS: BUN/Creatinine Ratio 16.1 (10.0-20.0); Glucose 102 mg/dL (74-106)
[2025-03-17 04:19] LABS: Blood Urea Nitrogen 98 mg/dL (9-23)
[2025-03-17] MEDS: PHENYLEPHRINE IV 250 ML IV SCH (04:50)
--- NOTE | 2025-03-17 05:19 | DVH ---
CHEST RADIOGRAPH Indication: RESP FAILURE Technique: Single frontal view of the chest was obtained COMPARISON: XY CHEST PORTABLE on DOS: 03/16/25, XY CHEST PORTABLE on DOS: 03/15/25, XY CHEST XRAY 1 VIE W on DOS: 03/14/25, XY CHEST XRAY 1 VIEW on DOS: 12/04/23 FINDINGS: Lines and Tubes: Unchanged. Lungs: Clear Pleura: No effusion. No pneumothorax. Cardiomediastinal contours: Unremarkable Bones: Unremarkable IMPRESSION: 1. No acute cardiopulmonary disease. 2. Lines and tubes unchanged.
[2025-03-17 07:55] LABS: Base Excess -0.2 mmol/L (-2.0-3.0)
[2025-03-17] MEDS: POTASSIUM CHL 20MEQ/100ML 100 ML IV SCH (09:00)
--- NOTE | 2025-03-17 14:48 | DVHPN2 ---
Progress Note Date Seen: Mar 17, 2025 Medical Necessity Reason Pt with a Central, PICC or Fol: Yes The following are medically ne: Central Line, Vigil Catheter Reason for vigil catheter: Strict I&O Subjective Patient reports: No new complaints Review of Systems: HEENT:Normal, CVS:Normal, RESPIRATORY:Normal, GI:Normal, :Normal, MSK:Normal, NEURO:Normal Objective vital signs Vital Sign Date Time Temp Pulse Resp B/P (MAP) Pulse Ox O2 Delivery O2 Flow Rate FiO2 03/17/25 13:46 89 24 113/63 (80) 96 30 03/17/25 10:00 Mechanical Ventilator+ 03/17/25 08:00 98.9 98.9 Total Intake and Output 03/16/25 03/16/25 03/17/25 15:00 23:00 07:00 Intake Total 926.14 ml 1129.94 ml 1282.40 ml Output Total 1275 ml 1000 ml Balance 926.14 ml -145.06 ml 282.40 ml medications Current Medications Medications Dose Ordered Sig/Stacy Route Start Time Stop Time Status Last Admin Dose Admin Propofol 100 ml @ 1.62 mls/hr Q24H IV 03/15/25 01:30 03/16/25 17:19 11.34 MLS/HR Ceftriaxone Sodium 50 ml @ 100 mls/hr DAILY@09 IV 03/15/25 09:00 03/17/25 09:03 100 MLS/HR Albuterol 2.5 mg Q6HPRN PRN NEB 03/15/25 04:15 Ondansetron HCl 4 mg Q4HP PRN IV 03/15/25 04:15 Acetaminophen 650 mg Q6HP PRN PO 03/15/25 04:15 Nitroglycerin 0.4 mg Q5MINP PRN SL 03/15/25 04:15 Morphine Sulfate 2 mg Q30M PRN IV 03/15/25 04:15 Pantoprazole Sodium 40 mg DAILY IV 03/16/25 10:00 03/17/25 09:00 40 MG Heparin Sodium (Porcine) 5,000 units Q12HR SC 03/15/25 22:00 03/16/25 21:31 5,000 UNITS Purified Water 200 ml Q4HR GT 03/15/25 18:00 03/17/25 09:03 200 ML Albuterol 2.5 mg Q6HR NEB 03/15/25 18:00 03/17/25 12:04 2.5 MG Ipratropium [place] 0.5 mg Q6HR NEB 03/15/25 18:00 03/17/25 12:04 0.5 MG Sodium Chloride 1,000 ml @ 60 mls/hr [id number] IV 03/16/25 09:45 03/17/25 02:34 60 MLS/HR Enteral Nutritional Formula 1,000 ml 30ML/HR GT 03/16/25 14:45 03/16/25 21:38 1,000 ML Fentanyl Citrate 250 ml @ 2.5 mls/hr Q24H IV 03/16/25 14:45 03/16/25 17:10 2.5 MLS/HR Enteral Nutritional Formula 1,000 ml 40ML/HR GT 03/16/25 15:00 Phenylephrine HCl 250 ml @ 30 mls/hr Q8H20M IV 03/17/25 04:30 03/17/25 13:21 30 MLS/HR Examination: GENERAL:Normal, HEENT:Normal, NECK:Normal, LUNGS:Normal, LUNGS:Abnormal (intubated), CVS:Normal, ABDOMEN:Normal, MSK:Normal, SKIN:Normal, NEURO:Normal, :Normal laboratory and microbiology Laboratory Tests 03/17/25 03:30 Test 03/17/25 03:30 Range/Units Serum Glucose 102 74-106 mg/dL Microbiology Date/Time Source Procedure Growth Status 03/15/25 14:40 Urine - Vigil Port Urine Culture - Preliminary Resulted 03/15/25 12:44 Nose MRSA Screen - Final Complete 03/14/25 21:34 Blood Blood Culture - Preliminary NO GROWTH AFTER 48 HOURS OF INCUBATION. Resulted Problem List/Assessment/Plan Problem List/Assessment/Plan #1 acute resp failure: cont acv #2 severe metabolic acidosis #3 acute renal failure /atn: ivf #4 drug abuse with amphetamines #5 hyperkalemia: improved #6 hypernatremia: free water #7 uti: iv levaquin #8 anemia #9 nstemi ?type 2 #10 copd: bronchodilators #11 pneumonia with p vulgaris with septic shock: cont vasopressors, iv levaquin Plan discussed with: Other (rn) My Orders My Orders Orders - SOPHIA RUDD MD Procedure Category Date Status Time Nutritional PHA 03/16/25 In Process Supplements (Vital Af 15:00 Dietary Evaluation Review Recommendations by RD: Increase Calorie Intake Comments: Pt meets criteria for Severe Protein-Calorie Malnutrition in the setting of chronic illness based on moderate muscle wasting and moderate fat depletion Nutrition Recommendation 1) TF Vital AF 1.2Cal @ 40ml/hr x 24hr (goal rate). TF @ goal volume along with Propofol provide 1450 kcal (100% energy needs), 72 gm protein (100% protein needs), 779 ml free water. 2) Water flush 170 ml Q6H if allowed, adjust PRN 3) TPN if NPO >7 days 4) Monitor NPO status, lab values, wt trend, I/O Expected Outcomes/Goals: Intakes to meet >75% estimated needs Lab values to improve Fu 2-3 days Body Fat Depletion (Severe): Mod to Severe Depletion Muscle Mass (Severe): Mod to Severe Depletion Fluid Accumulation (N/A): N/A Protein Calorie Malnutrition: Severe Is there a minimum of two crit: Yes Critical Care Time (mins): 51 (critical care time excluding procedures is 51 mins) Date of Service: Mar 17, 2025 Billing Provider: SOPHIA RUDD MD Common Visit Codes: [id number] CARE 30-74 MIN SOPHIA RUDD MD Mar 17, 2025 14:48
--- NOTE | 2025-03-17 15:00 | DVHPN2 ---
Progress Note Date Seen: Mar 17, 2025 Medical Necessity Reason Pt with a Central, PICC or Fol: Yes The following are medically ne: Central Line, Vigil Catheter Reason for vigil catheter: Strict I&O Objective vital signs Vital Sign Date Time Temp Pulse Resp B/P (MAP) Pulse Ox O2 Delivery O2 Flow Rate FiO2 03/17/25 13:46 89 24 113/63 (80) 96 30 03/17/25 10:00 Mechanical Ventilator+ 03/17/25 08:00 98.9 98.9 Total Intake and Output 03/16/25 03/16/25 03/17/25 15:00 23:00 07:00 Intake Total 926.14 ml 1129.94 ml 1282.40 ml Output Total 1275 ml 1000 ml Balance 926.14 ml -145.06 ml 282.40 ml medications Current Medications Medications Dose Ordered Sig/Stacy Route Start Time Stop Time Status Last Admin Dose Admin Propofol 100 ml @ 1.62 mls/hr Q24H IV 03/15/25 01:30 03/16/25 17:19 11.34 MLS/HR Albuterol 2.5 mg Q6HPRN PRN NEB 03/15/25 04:15 Ondansetron HCl 4 mg Q4HP PRN IV 03/15/25 04:15 Acetaminophen 650 mg Q6HP PRN PO 03/15/25 04:15 Nitroglycerin 0.4 mg Q5MINP PRN SL 03/15/25 04:15 Morphine Sulfate 2 mg Q30M PRN IV 03/15/25 04:15 Pantoprazole Sodium 40 mg DAILY IV 03/16/25 10:00 03/17/25 09:00 40 MG Purified Water 200 ml Q4HR GT 03/15/25 18:00 03/17/25 09:03 200 ML Albuterol 2.5 mg Q6HR NEB 03/15/25 18:00 03/17/25 12:04 2.5 MG Ipratropium [place] 0.5 mg Q6HR NEB 03/15/25 18:00 03/17/25 12:04 0.5 MG Sodium Chloride 1,000 ml @ 60 mls/hr [id number] IV 03/16/25 09:45 03/17/25 02:34 60 MLS/HR Enteral Nutritional Formula 1,000 ml 30ML/HR GT 03/16/25 14:45 03/16/25 21:38 1,000 ML Fentanyl Citrate 250 ml @ 2.5 mls/hr Q24H IV 03/16/25 14:45 03/16/25 17:10 2.5 MLS/HR Enteral Nutritional Formula 1,000 ml 40ML/HR GT 03/16/25 15:00 Phenylephrine HCl 250 ml @ 30 mls/hr Q8H20M IV 03/17/25 04:30 03/17/25 13:21 30 MLS/HR Levofloxacin/ Dextrose 100 ml @ 100 mls/hr DAILY IV 03/18/25 10:00 UNV laboratory and microbiology Laboratory Tests 03/17/25 03:30 Test 03/17/25 03:30 Range/Units Serum Glucose 102 74-106 mg/dL Microbiology Date/Time Source Procedure Growth Status 03/15/25 14:40 Urine - Vigil Port Urine Culture - Preliminary Resulted 03/15/25 12:44 Nose MRSA Screen - Final Complete 03/14/25 21:34 Blood Blood Culture - Preliminary NO GROWTH AFTER 48 HOURS OF INCUBATION. Resulted Problem List/Assessment/Plan Problem List/Assessment/Plan Acute kidney injury hemodynamically mediated likely in the setting of shock Recommend IV fluid hydration Pressors to maintain mean arterial pressure greater than 65 at all times Monitoring urinary output Strict Is&Os Chronic kidney disease unspecified baseline unknown but assumed based on previous hospitalization to be moderate kidney function stage III Avoid contrast studies Avoid nonsteroidal anti-inflammatory drugs Altered mental status and respiratory failure Acute methamphetamine abuse Vent per ICU Septic shock Blood culture Urine culture IV antibiotics are ordered recommend renal dosing giving diminished GFR Hyperkalemia resolved--> now low K replaced Metabolic acidosis resolved Hypernatremia -> 0.45%NACL Acute respiratory failure COPD exacerbation Anemia multifactorial in the setting of chronic kidney disease as well as acute inflammation Recommend PRBC if hemoglobin drops below eight we will obtain iron panel at this time Patient's urine output has increased 4.5L in 24 hours with slow improvement in electrolytes and cr there is no emergent indication for dialysis at this time Plan discussed with: Other My Orders My Orders Orders - MUNIRA PETER MD Procedure Category Date Status Time Basic Metabolic Panel LAB 03/18/25 Verified 04:00 Dietary Evaluation Review Recommendations by RD: Increase Calorie Intake Comments: Pt meets criteria for Severe Protein-Calorie Malnutrition in the setting of chronic illness based on moderate muscle wasting and moderate fat depletion Nutrition Recommendation 1) TF Vital AF 1.2Cal @ 40ml/hr x 24hr (goal rate). TF @ goal volume along with Propofol provide 1450 kcal (100% energy needs), 72 gm protein (100% protein needs), 779 ml free water. 2) Water flush 170 ml Q6H if allowed, adjust PRN 3) TPN if NPO >7 days 4) Monitor NPO status, lab values, wt trend, I/O Expected Outcomes/Goals: Intakes to meet >75% estimated needs Lab values to improve Fu 2-3 days Body Fat Depletion (Severe): Mod to Severe Depletion Muscle Mass (Severe): Mod to Severe Depletion Fluid Accumulation (N/A): N/A Protein Calorie Malnutrition: Severe Is there a minimum of two crit: Yes Critical Care Time (mins): 33 MUNIRA PETER MD Mar 17, 2025 15:00
[2025-03-17] MEDS: MAGNESIUM SULFATE 1GM/100ML 100 ML IV ONE (17:07)
[2025-03-18] VITALS (90 sets, daily range): BP systolic 100–154; BP diastolic 59–92; PULSE 78–127; RESP 9–75; TEMP 97.9–98.9; O2SAT 93–100
[2025-03-18 02:41] LABS: Nucleated Red Blood Cells % 0.2 %
[2025-03-18 02:42] LABS: Hematocrit 24.1 % (36.0-46.0); Hemoglobin 8.0 g/dL (12.2-16.2); Mean Corpuscular Hemoglobin 29.4 pg (28.0-32.0); Mean Corpuscular Volume 89.2 fL (80.0-100.0)
[2025-03-18 02:50] LABS: Potassium 3.7 mmol/L (3.5-5.1)
[2025-03-18 02:51] LABS: Anion Gap 12 (5-15); Carbon Dioxide 26 mmol/L (20-31)
[2025-03-18 02:54] LABS: Calcium 7.3 mg/dL (8.7-10.4); Chloride 110 mmol/L (98-107); Sodium 148 mmol/L (136-145)
[2025-03-18 02:56] LABS: Glucose 105 mg/dL (74-106)
[2025-03-18 02:57] LABS: BUN/Creatinine Ratio 18.1 (10.0-20.0); Magnesium 1.8 mg/dL (1.6-2.6)
[2025-03-18 02:59] LABS: Blood Urea Nitrogen 76 mg/dL (9-23)
[2025-03-18 04:56] LABS: Iron 19.0 ug/dL (50-170)
[2025-03-18 05:02] LABS: Total Iron Binding Capacity 198.0 ug/dL (250-425)
--- NOTE | 2025-03-18 05:09 | DVH ---
CHEST RADIOGRAPH Indication: resp failure Technique: Single frontal view of the chest was obtained COMPARISON: XY CHEST PORTABLE on DOS: 03/17/25, XY CHEST PORTABLE on DOS: 03/16/25, XY CHEST PORTABLE o n DOS: 03/15/25, XY CHEST XRAY 1 VIEW on DOS: 03/14/25, XY CHEST XRAY 1 VIEW on DOS: 12/04/23 FINDINGS: Lines and Tubes: Unchanged. Lungs: Mild diffuse increased prominence of the pulmonary vasculature. No evidence of focal consolid ation. Pleura: No effusion. No pneumothorax. Cardiomediastinal contours: Unremarkable Bones: Unremarkable IMPRESSION: 1. Mild diffuse increased prominence of the pulmonary vasculature. 2. No acute cardiopulmonary process. 3. Lines and tubes unchanged.
[2025-03-18] MEDS: MAGNESIUM SULFATE 1GM/100ML 100 ML IV ONE (06:09)
--- NOTE | 2025-03-18 08:08 | ECG ---
[facility] Test Date: 2025-03-18 Test Time: 02:06:15 Pat Name: AMY OSORIO Department: icu Room: [address] [place] [address] A Gender: F Avionics Manager: NATHAN : 1955 Requested By: SOPHIA RUDD Order Number: [id number] Reading MD: Measurements Intervals [place] Rate: 100 P: -7 [place]: 105 QRS: 42 QRSD: 142 T: 48 QT: 358 QTc: 462 Interpretive Statements Sinus tachycardia Paired ventricular premature complexes Nonspecific intraventricular conduction delay Please click the below link to view image of tracing.
[2025-03-18 08:51] LABS: Base Excess -2.2 mmol/L (-2.0-3.0)
[2025-03-18] MEDS: IRON SUCROSE COMPLEX 110 ML IV SCH (11:38)
[2025-03-18 12:21] LABS: Base Excess -2.2 mmol/L (-2.0-3.0)
--- NOTE | 2025-03-18 13:18 | DVHPN2 ---
Progress Note Date Seen: Mar 18, 2025 Medical Necessity Reason Pt with a Central, PICC or Fol: Yes The following are medically ne: Central Line, Vigil Catheter Reason for vigil catheter: Strict I&O Subjective Patient reports: No new complaints Review of Systems: HEENT:Normal, CVS:Normal, RESPIRATORY:Normal, GI:Normal, :Normal, MSK:Normal, NEURO:Normal Objective vital signs Vital Sign Date Time Temp Pulse Resp B/P (MAP) Pulse Ox O2 Delivery O2 Flow Rate FiO2 03/18/25 13:05 94 19 131/73 (92) 94 30 03/18/25 10:00 Mechanical Ventilator+ 03/18/25 08:00 98.7 98.7 Total Intake and Output 03/17/25 03/17/25 03/18/25 15:00 23:00 07:00 Intake Total 836.38 ml 1565.88 ml 1423.14 ml Output Total 1400 ml 1750 ml Balance 836.38 ml 165.88 ml -326.86 ml medications Current Medications Medications Dose Ordered Sig/Stacy Route Start Time Stop Time Status Last Admin Dose Admin Propofol 100 ml @ 1.62 mls/hr Q24H IV 03/15/25 01:30 03/18/25 02:18 4.86 MLS/HR Albuterol 2.5 mg Q6HPRN PRN NEB 03/15/25 04:15 Ondansetron HCl 4 mg Q4HP PRN IV 03/15/25 04:15 Acetaminophen 650 mg Q6HP PRN PO 03/15/25 04:15 Nitroglycerin 0.4 mg Q5MINP PRN SL 03/15/25 04:15 Morphine Sulfate 2 mg Q30M PRN IV 03/15/25 04:15 Pantoprazole Sodium 40 mg DAILY IV 03/16/25 10:00 03/18/25 09:48 40 MG Purified Water 200 ml Q4HR GT 03/15/25 18:00 03/18/25 09:48 200 ML Albuterol 2.5 mg Q6HR NEB 03/15/25 18:00 03/18/25 13:05 2.5 MG Ipratropium [place] 0.5 mg Q6HR NEB 03/15/25 18:00 03/18/25 13:04 0.5 MG Sodium Chloride 1,000 ml @ 60 mls/hr [id number] IV 03/16/25 09:45 03/18/25 11:42 60 MLS/HR Fentanyl Citrate 250 ml @ 2.5 mls/hr Q24H IV 03/16/25 14:45 03/18/25 02:19 7.5 MLS/HR Enteral Nutritional Formula 1,000 ml 40ML/HR GT 03/16/25 15:00 Phenylephrine HCl 250 ml @ 30 mls/hr Q8H20M IV 03/17/25 04:30 03/17/25 21:37 30 MLS/HR Levofloxacin/ Dextrose 100 ml @ 100 mls/hr DAILY IV 03/18/25 10:00 UNV Levofloxacin 50 ml @ 100 mls/hr DAILY@POSTDI IV 03/18/25 10:00 Iron Sucrose 110 ml @ 110 mls/hr DAILY@1200 IV 03/18/25 12:00 03/22/25 12:59 03/18/25 11:38 110 MLS/HR Examination: GENERAL:Normal, HEENT:Normal, NECK:Normal, LUNGS:Normal, LUNGS:Abnormal (intubated), CVS:Normal, ABDOMEN:Normal, MSK:Normal, SKIN:Normal, NEURO:Normal, :Normal laboratory and microbiology Laboratory Tests 03/18/25 02:15 Test 03/18/25 02:15 Range/Units Serum Glucose 105 74-106 mg/dL Microbiology Date/Time Source Procedure Growth Status 03/15/25 14:40 Urine - Vigil Port Urine Culture - Final Complete 03/15/25 12:44 Nose MRSA Screen - Final Complete 03/14/25 21:34 Blood Blood Culture - Preliminary NO GROWTH AFTER 72 HOURS OF INCUBATION. Resulted Problem List/Assessment/Plan Problem List/Assessment/Plan #1 acute resp failure: cont acv, cpap trial #2 severe metabolic acidosis #3 acute renal failure /atn: ivf #4 drug abuse with amphetamines #5 hyperkalemia: improved #6 hypernatremia: free water #7 uti: iv levaquin #8 anemia #9 nstemi ?type 2 #10 copd: bronchodilators #11 pneumonia with p vulgaris with septic shock: cont vasopressors, iv levaquin Plan discussed with: Other (rn) My Orders My Orders Orders - SOPHIA RUDD MD Procedure Category Date Status Time Cpap Trial For Am ORDERS 03/17/25 Transmitted 14:41 Chest Portable XY 03/18/25 Resulted 06:00 Abg W/ Co-Ox RT 03/18/25 Logged 06:00 Levofloxacin 250mg PHA 03/18/25 In Process (Levaquin 250mg) 10:00 Communication Order ORDERS 03/18/25 Transmitted 10:48 Cpap Trial For Am ORDERS 03/18/25 Transmitted 10:48 Abg W/ Co-Ox RT 03/18/25 Logged 11:43 Dietary Evaluation Review Recommendations by RD: Increase Calorie Intake Comments: Pt meets criteria for Severe Protein-Calorie Malnutrition in the setting of chronic illness based on moderate muscle wasting and moderate fat depletion Nutrition Recommendation 1) TF Vital AF 1.2Cal @ 40ml/hr x 24hr (goal rate). TF @ goal volume along with Propofol provide 1450 kcal (100% energy needs), 72 gm protein (100% protein needs), 779 ml free water. 2) Water flush 170 ml Q6H if allowed, adjust PRN 3) TPN if NPO >7 days 4) Monitor NPO status, lab values, wt trend, I/O Expected Outcomes/Goals: Intakes to meet >75% estimated needs Lab values to improve Fu 2-3 days Body Fat Depletion (Severe): Mod to Severe Depletion Muscle Mass (Severe): Mod to Severe Depletion Fluid Accumulation (N/A): N/A Protein Calorie Malnutrition: Severe Is there a minimum of two crit: Yes Critical Care Time (mins): 82 (critical care time excluding procedures and including cpap trial is 82 mins) Date of Service: Mar 18, 2025 Billing Provider: SOPHIA RUDD MD Common Visit Codes: [id number] CARE 30-74 MIN, [id number] CARE-EACH +30MIN SOPHIA RUDD MD Mar 18, 2025 13:18
--- NOTE | 2025-03-18 15:09 | DVHPN2 ---
Progress Note Date Seen: Mar 18, 2025 Medical Necessity Reason Pt with a Central, PICC or Fol: Yes The following are medically ne: Central Line, Vigil Catheter Reason for vigil catheter: Strict I&O Subjective Changes from previous H/P or p: Changes (extubated) Objective vital signs Vital Sign Date Time Temp Pulse Resp B/P (MAP) Pulse Ox O2 Delivery O2 Flow Rate FiO2 03/18/25 14:00 30 03/18/25 14:00 95 16 136/68 (90) 95 03/18/25 14:00 Mechanical Ventilator+ 03/18/25 12:00 98.9 98.9 Total Intake and Output 03/17/25 03/17/25 03/18/25 15:00 23:00 07:00 Intake Total 836.38 ml 1565.88 ml 1423.14 ml Output Total 1400 ml 1750 ml Balance 836.38 ml 165.88 ml -326.86 ml medications Current Medications Medications Dose Ordered Sig/Stacy Route Start Time Stop Time Status Last Admin Dose Admin Propofol 100 ml @ 1.62 mls/hr Q24H IV 03/15/25 01:30 03/18/25 02:18 4.86 MLS/HR Albuterol 2.5 mg Q6HPRN PRN NEB 03/15/25 04:15 Ondansetron HCl 4 mg Q4HP PRN IV 03/15/25 04:15 Acetaminophen 650 mg Q6HP PRN PO 03/15/25 04:15 Nitroglycerin 0.4 mg Q5MINP PRN SL 03/15/25 04:15 Morphine Sulfate 2 mg Q30M PRN IV 03/15/25 04:15 Pantoprazole Sodium 40 mg DAILY IV 03/16/25 10:00 03/18/25 09:48 40 MG Purified Water 200 ml Q4HR GT 03/15/25 18:00 03/18/25 09:48 200 ML Albuterol 2.5 mg Q6HR NEB 03/15/25 18:00 03/18/25 13:05 2.5 MG Ipratropium [place] 0.5 mg Q6HR NEB 03/15/25 18:00 03/18/25 13:04 0.5 MG Sodium Chloride 1,000 ml @ 60 mls/hr [id number] IV 03/16/25 09:45 03/18/25 11:42 60 MLS/HR Fentanyl Citrate 250 ml @ 2.5 mls/hr Q24H IV 03/16/25 14:45 03/18/25 02:19 7.5 MLS/HR Enteral Nutritional Formula 1,000 ml 40ML/HR GT 03/16/25 15:00 Phenylephrine HCl 250 ml @ 30 mls/hr Q8H20M IV 03/17/25 04:30 03/17/25 21:37 30 MLS/HR Levofloxacin/ Dextrose 100 ml @ 100 mls/hr DAILY IV 03/18/25 10:00 UNV Levofloxacin 50 ml @ 100 mls/hr DAILY@POSTDI IV 03/18/25 10:00 Iron Sucrose 110 ml @ 110 mls/hr DAILY@1200 IV 03/18/25 12:00 03/22/25 12:59 03/18/25 11:38 110 MLS/HR Examination: GENERAL:Normal, LUNGS:Normal laboratory and microbiology Laboratory Tests 03/18/25 02:15 Test 03/18/25 02:15 Range/Units Serum Glucose 105 74-106 mg/dL Microbiology Date/Time Source Procedure Growth Status 03/15/25 14:40 Urine - Vigil [place] Urine Culture - Final Complete 03/15/25 12:44 Nose MRSA Screen - Final Complete 03/14/25 21:34 Blood Blood Culture - Preliminary NO GROWTH AFTER 72 HOURS OF INCUBATION. Resulted Problem List/Assessment/Plan Problem List/Assessment/Plan Acute kidney injury hemodynamically mediated likely in the setting of shock Recommend IV fluid hydration Pressors to maintain mean arterial pressure greater than 65 at all times Monitoring urinary output Strict Is&Os Chronic kidney disease unspecified baseline unknown but assumed based on previous hospitalization to be moderate kidney function stage III Avoid contrast studies Avoid nonsteroidal anti-inflammatory drugs Altered mental status and respiratory failure Acute methamphetamine abuse extubated now on open mask Septic shock Blood culture Urine culture IV antibiotics are ordered recommend renal dosing giving diminished GFR Hyperkalemia resolved--> now low K replaced Metabolic acidosis resolved Hypernatremia -> 0.45%NACL Acute respiratory failure resolved COPD exacerbation Anemia multifactorial in the setting of chronic kidney disease as well as acute inflammation Recommend PRBC if hemoglobin drops below eight we will obtain iron panel at this time Patient's urine output has increased with slow improvement in electrolytes and cr there is no emergent indication for dialysis at this time Plan discussed with: Patient My Orders My Orders Orders - MUNIRA PETER MD Procedure Category Date Status Time Iron Sucrose Complex PHA 03/18/25 In Process (Venofer) 12:00 Dietary Evaluation Review Recommendations by RD: Increase Calorie Intake Comments: Pt meets criteria for Severe Protein-Calorie Malnutrition in the setting of chronic illness based on moderate muscle wasting and moderate fat depletion Nutrition Recommendation 1) TF Vital AF 1.2Cal @ 40ml/hr x 24hr (goal rate). TF @ goal volume along with Propofol provide 1450 kcal (100% energy needs), 72 gm protein (100% protein needs), 779 ml free water. 2) Water flush 170 ml Q6H if allowed, adjust PRN 3) TPN if NPO >7 days 4) Monitor NPO status, lab values, wt trend, I/O Expected Outcomes/Goals: Intakes to meet >75% estimated needs Lab values to improve Fu 2-3 days Body Fat Depletion (Severe): Mod to Severe Depletion Muscle Mass (Severe): Mod to Severe Depletion Fluid Accumulation (N/A): N/A Protein Calorie Malnutrition: Severe Is there a minimum of two crit: Yes Critical Care Time (mins): 33 MUNIRA PETER MD Mar 18, 2025 15:09
[2025-03-19] VITALS (44 sets, daily range): BP systolic 115–159; BP diastolic 48–93; PULSE 76–101; RESP 10–24; TEMP 97.8–99.7; O2SAT 88–100
[2025-03-19 03:57] LABS: Hematocrit 25.0 % (36.0-46.0); Hemoglobin 8.0 g/dL (12.2-16.2); Mean Corpuscular Hemoglobin 28.8 pg (28.0-32.0); Mean Corpuscular Volume 90.6 fL (80.0-100.0); Nucleated Red Blood Cells % 0.4 %
[2025-03-19 04:03] LABS: Anion Gap 17 (5-15); Carbon Dioxide 23 mmol/L (20-31)
[2025-03-19 04:08] LABS: Glucose 82 mg/dL (74-106)
[2025-03-19 04:09] LABS: BUN/Creatinine Ratio 16.6 (10.0-20.0); Magnesium 1.8 mg/dL (1.6-2.6)
[2025-03-19 04:11] LABS: Blood Urea Nitrogen 53 mg/dL (9-23); Calcium 8.4 mg/dL (8.7-10.4); Chloride 111 mmol/L (98-107); Potassium 3.4 mmol/L (3.5-5.1); Sodium 151 mmol/L (136-145)
--- NOTE | 2025-03-19 06:08 | DVH ---
CHEST RADIOGRAPH Indication: copd Technique: Single frontal view of the chest was obtained COMPARISON: XY CHEST PORTABLE on DOS: 03/18/25, XY CHEST PORTABLE on DOS: 03/17/25, XY CHEST PORTABLE o n DOS: 03/16/25, XY CHEST PORTABLE on DOS: 03/15/25, XY CHEST XRAY 1 VIEW on DOS: 03/14/25 FINDINGS: Lines and Tubes: Status post interval extubation and removal of enteric catheter. Right internal jug ular central venous catheter unchanged. Lungs: Clear Pleura: No effusion. No pneumothorax. Cardiomediastinal contours: Unremarkable Bones: Unremarkable IMPRESSION: 1. No acute cardiopulmonary disease. 2. Status post interval extubation and removal of enteric catheter. Right IJ catheter unchanged.
--- NOTE | 2025-03-19 09:13 | DVHDS2 ---
Discharge Summary Date of Admission Mar 15, 2025 at 01:03 Date of Discharge: Mar 19, 2025 Admitting Diagnosis Acute respiratory failure Labs/Diagnostic Data: Laboratory Results Test 03/19/25 03:40 03/18/25 12:08 03/18/25 07:49 03/18/25 03:00 White Blood Count 9.5 10^3/uL (4.4-10.8) Red Blood Count 2.76 10^6/uL (4.0-5.20) Hemoglobin 8.0 g/dL (12.2-16.2) Hematocrit 25.0 % (36.0-46.0) Mean Corpuscular Volume 90.6 fL (80.0-100.0) Mean Corpuscular Hemoglobin 28.8 pg (28.0-32.0) Mean Corpuscular Hemoglobin Concent 31.8 g/dL (32.0-36.0) Red Cell Distribution Width 17.7 % (11.8-14.3) Platelet Count 147 10^3/uL (140-450) Mean Platelet Volume 9.6 fL (6.9-10.8) Neutrophils (%) (Auto) 85.6 % (37.0-80.0) Lymphocytes (%) (Auto) 7.4 % (10.0-50.0) Monocytes (%) (Auto) 5.5 % (0.0-12.0) Eosinophils (%) (Auto) 1.3 % (0.0-7.0) Basophils (%) (Auto) 0.2 % (0.0-2.0) Neutrophils # (Auto) 8.2 10 ^3/uL (1.6-8.6) Lymphocytes # (Auto) 0.7 10 ^3/uL (0.4-5.4) Monocytes # (Auto) 0.5 10 ^3/uL (0-1.3) Eosinophils # (Auto) 0.1 10 ^3/uL (0-0.8) Basophils # (Auto) 0 10 ^3/uL (0-0.2) Nucleated Red Blood Cells 0.4 % Sodium Level 151 mmol/L (136-145) Potassium Level 3.4 mmol/L (3.5-5.1) Chloride Level 111 mmol/L (98-107) Carbon Dioxide Level 23 mmol/L (20-31) Anion Gap 17 (5-15) Blood Urea Nitrogen 53 mg/dL (9-23) Creatinine 3.20 mg/dL (0.550-1.02) Glomerular Filtration Rate Calc 15 mL/min (>90) BUN/Creatinine Ratio 16.6 (10.0-20.0) Serum Glucose 82 mg/dL (74-106) Calcium Level 8.4 mg/dL (8.7-10.4) Magnesium Level 1.8 mg/dL (1.6-2.6) Blood Gas Specimen Type Arterial Blood Gas Sample Site Right radial Blood Gas Patient Temperature 37.0 Arterial Blood Date Drawn [id number] Arterial Blood pH 7.427 (7.350-7.450) Arterial Blood Partial Pressure CO2 33.8 mmHg (32.0-45.0) Arterial Blood Partial Pressure O2 73.6 mmHg (83.0-108.0) Arterial Blood HCO3 21.8 mmol/L (21.0-28.0) Arterial Blood Oxygen Saturation 93.8 % (94.0-98.0) Arterial Blood Base Excess -2.2 mmol/L (-2.0-3.0) Arterial Blood Oxyhemoglobin 93.2 % (94.0-98.0) Arterial Blood Carboxyhemoglobin 0.3 % (0.5-1.5) Arterial Blood Methemoglobin 0.3 % (0.0-1.5) Killian Test Modified Blood Gas Total Hemoglobin 8.00 g/dL (12.0-16.0) Blood Gas Modality Vent - cpap FiO2 % 30.0 Blood Gas Pressure Support 8 Blood Gas PEEP or CPAP 5.0 Blood Gas Set Respiration Rate 24.0 Blood Gas Tidal Volume 500.0 Blood Gas Critical Value Read Back yes Blood Gas Notified Whom eb Garay md Blood Gas Notified Time [id number] Blood Gas Notified By Jimy parson Iron Level 19 ug/dL (50-170) Total Iron Binding Capacity 198 ug/dL (250-425) Percent Iron Saturation 9.6 % (15-50) Ferritin 182.9 ng/mL (10-291) Test 03/16/25 12:29 03/16/25 03:41 03/15/25 14:00 03/15/25 10:15 POC Glucose 133 mg/dl (70-106) Prothrombin Time 11.0 sec (9.3-11.8) Prothrombin Time INR 1.04 (0.9-1.15) Activated Partial Thromboplast Time 29.0 SEC (24.5-34.5) Total Bilirubin < 0.2 mg/dL (0.2-1.0) Aspartate Amino Transferase (AST) 22 U/L (13-40) Alanine Aminotransferase (ALT) 13 U/L (7-40) Alkaline Phosphatase 80 U/L (46-116) Total Protein 6.6 g/dL (5.7-8.2) Albumin 3.4 g/dL (3.2-4.8) Hepatitis A IgM Antibody Negative Hepatitis B Surface Antigen Negative (Negative) Hepatitis B Core IgM Antibody Negative (Negative) Hepatitis C Antibody Positive (Negative) Creatine Kinase 305 U/L (34-145) Test 03/15/25 00:36 03/14/25 22:08 03/14/25 21:34 03/14/25 21:20 Troponin I High Sensitivity 36 ng/L (</=34) Urine Color Brown (Yellow) Urine Clarity Cloudy (Clear) Urine pH 5.5 (5.0-9.0) Urine Specific [place] 1.011 (1.001-1.035) Urine Protein 1+ (Negative) Urine Ketones Negative (Negative) Urine Blood 2+ /uL (Negative) Urine Nitrite Negative (Negative) Urine Bilirubin Negative (Negative) Urine Urobilinogen Normal mg/dL (Negative) Urine Leukocyte Esterase 1+ /uL (Negative) Urine Glucose Normal mg/dL (Normal) Urine Opiates Screen Neg (NEGATIVE) Urine Fentanyl Screen Neg (NEGATIVE) Urine Barbiturates Screen Neg (NEGATIVE) Urine Phencyclidine Screen Neg (NEGATIVE) Urine Amphetamines Screen Pos (NEGATIVE) Urine Benzodiazepines Screen Neg (NEGATIVE) Urine Cocaine Screen Neg (NEGATIVE) Urine Cannabinoids Screen Neg (NEGATIVE) Differential Total Cells Counted 100.0 (100) Neutrophils % (Manual) 73 (37.0-80.0) Band Neutrophils % (Manual) 11 Lymphocytes % (Manual) 6 (10.0-50.0) Monocytes % (Manual) 10 (0-12) Eosinophils % (Manual) 0 (0-7) Basophils % (Manual) 0 (0.0-2.0) Metamyelocytes % (manual) 0 Myelocytes % (Manual) 0 Promyelocytes % (Manual) 0 Blast Cells % (Manual) 0 Reactive Lymphocytes 0 Platelet Estimate Adequate Lactic Acid Level 0.7 mmol/L (0.4-2.0) B-Type Natriuretic Peptide 134.64 pg/mL (0-100) Lipase 435 U/L (12-53) Thyroid Stimulating Hormone (TSH) 1.85 uIU/mL (0.55-4.78) Plasma/Serum Blood Alcohol < 3.0 mg/dL (<10) Blood Gas Liter Flow 15.00 Other Laboratory Tests 03/19/25 03:40 Brief Hx & Hospital Course: History of Present Illness 70-year-old female presents for evaluation of altered mental status. Patient was found unresponsive gasping for air in her home. Patient was intubated on arrival to the emergency department for airway protection. Course of hospitalization: Patient was successfully weaned off mechanical ventilation. Patient was noted to be positive for Proteus vulgaris in sputum, currently being treated with Levaquin. Now that patient is alert and oriented off the ventilator, she reports having in a significant medical history of nicotine dependence, COPD, but denies any illicit drug use despite her urine drug screen being positive for amphetamines. Patient is currently on 2 L via nasal cannula. She will be continued on antibiotic therapy, bronchodilators, with her diet being advanced. Patient is stable to transfer to [facility], for which the patient agrees to the transfer. Physical examination General: Alert and Oriented x3. No acute distress. Well-nourished. Eyes: EOMI. Anicteric. HENT: Moist mucous membranes. Lungs: Clear to auscultation bilaterally. No accessory muscle use. Cardiovascular: Regular rate and rhythm. No murmur. No JVD. Abdomen: Soft, non-tender and non-distended. No palpable masses. Extremities: No edema. Non-tender. Skin: No rashes or lesions. Warm. Neurologic: No focal neurological deficits. CN II-XII grossly intact, but not individually tested. Psychiatric: Cooperative. Appropriate mood and affect. Total time spent with patient discussing and formulating plan of care: 35 minutes. This medical document was created using an electronic medical record system with [email or web address] system. Although this document has been carefully reviewed, there may still be some phonetic and typographical errors. These areas are purely typographical due to imperfections of the software programs, and do not reflect any compromise in the patient's medical care. Condition at Discharge: Guarded Final Diagnosis/Problems List Acute hypoxic respiratory failure Secondary diagnosis and plan given patient being transferred: Problem List/Assessment/Plan #1 acute resp failure: cont acv, cpap trial #2 severe metabolic acidosis #3 acute renal failure /atn: ivf #4 drug abuse with amphetamines #5 hyperkalemia: improved #6 hypernatremia: free water #7 uti: iv levaquin #8 anemia #9 nstemi ?type 2 #10 copd: bronchodilators #11 pneumonia with p vulgaris with septic shock: cont vasopressors, iv levaquin Discharge Disposition: Acute Care Facility Discharge Instruct/Medications Diet: Regular Activity: No Restrictions, As Tolerated Follow Up/Referral: Per accepting provider Medications: Refer to medication reconciliation form No Active Prescriptions or Reported Meds 36 Discharge Statement: "Patient was advised to return to the ER or call 911 if any headaches, dizziness, shortness of breath, chest pain, abdominal pain, bleeding, fevers, or worsening of medical condition. Patient was counseled about treatment plan, medications, possible side effects, patientverbalized understanding. All questions were answered to the best of my ability. This discharge took greater then 30 minutes in planning, reviewing documentation, counseling the patient, and discussing with other team members." ASSESSMENT ASSESSMENT Assessment Acute hypoxic respiratory failure Date of Service: Mar 19, 2025 Billing Provider: NAVDEEP FENG NP Common Visit Codes: 18090-KXG/OBS DISCH DAY >30min NAVDEEP FENG NP Mar 19, 2025 09:13
[2025-03-19] MEDS: POTASSIUM CHL 20MEQ/100ML 100 ML IV ONE (09:40)
--- NOTE | 2025-03-19 14:19 | DVHPN2 ---
Progress Note - Dictate Date Seen: Mar 19, 2025 Medical Necessity Reason Pt with a Central, PICC or Fol: Yes The following are medically ne: Central Line, Vigil Catheter Reason for vigil catheter: Strict I&O Subjective Awake and alert this afternoon vital signs Vital Sign Date Time Temp Pulse Resp B/P (MAP) Pulse Ox O2 Delivery O2 Flow Rate FiO2 03/19/25 13:00 85 13 124/79 (94) 93 03/19/25 12:00 97.8 97.8 03/19/25 12:00 Room Air* 0 21 Total Intake and Output 03/18/25 03/18/25 03/19/25 14:59 22:59 06:59 Intake Total 622.68 ml 880 ml 480 ml Output Total 2200 ml 2100 ml Balance 622.68 ml -1320 ml -1620 ml medications Current Medications Medications Dose Ordered Sig/Stacy Route Start Time Stop Time Status Last Admin Dose Admin Propofol 100 ml @ 1.62 mls/hr Q24H IV 03/15/25 01:30 03/18/25 02:18 4.86 MLS/HR Albuterol 2.5 mg Q6HPRN PRN NEB 03/15/25 04:15 Ondansetron HCl 4 mg Q4HP PRN IV 03/15/25 04:15 Acetaminophen 650 mg Q6HP PRN PO 03/15/25 04:15 Nitroglycerin 0.4 mg Q5MINP PRN SL 03/15/25 04:15 Morphine Sulfate 2 mg Q30M PRN IV 03/15/25 04:15 Pantoprazole Sodium 40 mg DAILY IV 03/16/25 10:00 03/19/25 09:38 40 MG Purified Water 200 ml Q4HR GT 03/15/25 18:00 03/18/25 09:48 200 ML Albuterol 2.5 mg Q6HR NEB 03/15/25 18:00 03/19/25 11:52 2.5 MG Ipratropium [place] 0.5 mg Q6HR NEB 03/15/25 18:00 03/19/25 11:52 0.5 MG Sodium Chloride 1,000 ml @ 60 mls/hr [id number] IV 03/16/25 09:45 03/19/25 04:23 60 MLS/HR Fentanyl Citrate 250 ml @ 2.5 mls/hr Q24H IV 03/16/25 14:45 03/18/25 02:19 7.5 MLS/HR Enteral Nutritional Formula 1,000 ml 40ML/HR GT 03/16/25 15:00 Phenylephrine HCl 250 ml @ 30 mls/hr Q8H20M IV 03/17/25 04:30 03/17/25 21:37 30 MLS/HR Levofloxacin/ Dextrose 100 ml @ 100 mls/hr DAILY IV 03/18/25 10:00 UNV Levofloxacin 50 ml @ 100 mls/hr DAILY@POSTDI IV 03/18/25 10:00 Iron Sucrose 110 ml @ 110 mls/hr DAILY@1200 IV 03/18/25 12:00 03/22/25 12:59 03/19/25 11:51 110 MLS/HR objective Gen: nad, thin heent: nc/at, mmm lungs: cta anteriorly cvs: no rub ext: no edema laboratory and microbiology Laboratory Tests 03/19/25 03:40 Test 03/19/25 03:40 Range/Units Serum Glucose 82 74-106 mg/dL Assessment/Plan IMP: 1) Hemodynamically mediated IVAN/VMN secondary to shock 2) CKD possibly stage III 3) altered mental status 4) toxic metabolic encephalopathy 5) septic shock REC: - kidney function continues to improve, mild hypernatremia noted. - hypotonic IV fluids until patient demonstrates adequate oral intake. - we will continue to follow during time course of IVAN recovery Dietary Evaluation Review Recommendations by RD: Increase Calorie Intake Comments: Pt meets criteria for Severe Protein-Calorie Malnutrition in the setting of chronic illness based on moderate muscle wasting and moderate fat depletion Nutrition Recommendation 1) TF Vital AF 1.2Cal @ 40ml/hr x 24hr (goal rate). TF @ goal volume along with Propofol provide 1450 kcal (100% energy needs), 72 gm protein (100% protein needs), 779 ml free water. 2) Water flush 170 ml Q6H if allowed, adjust PRN 3) TPN if NPO >7 days 4) Monitor NPO status, lab values, wt trend, I/O Expected Outcomes/Goals: Intakes to meet >75% estimated needs Lab values to improve Fu 2-3 days Body Fat Depletion (Severe): Mod to Severe Depletion Muscle Mass (Severe): Mod to Severe Depletion Fluid Accumulation (N/A): N/A Protein Calorie Malnutrition: Severe Is there a minimum of two crit: Yes Plan discussed with: Patient, Other BILLY VERA MD Mar 19, 2025 14:19
== END 2025-03-19 21:38 | disposition short-term general hospital (02) | DRG 870 ==
LOC: EDBD 21:11 → ER 21:11 → OVERFLOW 03-15 01:03 → ICU WEST 03-15 07:56 → TELE-EAST 03-19 17:25
PROVIDERS: ADMIT Nurse Practitioner Acute Care; ATTEND Nurse Practitioner Acute Care
PROC: 0BH17EZ Insertion of Endotracheal Airway into Trachea, Via Natural or Artificial Opening (ICD-10-PCS; principal; 2025-03-14)
PROC: 5A1955Z Respiratory Ventilation, Greater than 96 Consecutive Hours (ICD-10-PCS; 2025-03-14)
PROC: 02HV33Z Insertion of Infusion Device into Superior Vena Cava, Percutaneous Approach (ICD-10-PCS; 2025-03-15)
PROC: B548ZZA Ultrasonography of Superior Vena Cava, Guidance (ICD-10-PCS; 2025-03-15)
DX: A41.9 Sepsis, unspecified organism (principal); E43 Unspecified severe protein-calorie malnutrition; R65.21 Severe sepsis with septic shock; G92.8 Other toxic encephalopathy; J96.01 Acute respiratory failure with hypoxia; J18.9 Pneumonia, unspecified organism; I21.A1 Myocardial infarction type 2; N17.0 Acute kidney failure with tubular necrosis; E87.0 Hyperosmolality and hypernatremia; E87.20 Acidosis, unspecified; I50.32 Chronic diastolic (congestive) heart failure; Z68.1 Body mass index [BMI] 19.9 or less, adult; N39.0 Urinary tract infection, site not specified; D64.9 Anemia, unspecified; E87.6 Hypokalemia; E87.5 Hyperkalemia; N18.9 Chronic kidney disease, unspecified; F15.10 Other stimulant abuse, uncomplicated; F17.210 Nicotine dependence, cigarettes, uncomplicated; J44.9 Chronic obstructive pulmonary disease, unspecified; Z79.899 Other long term (current) drug therapy
CPT/HCPCS: 36415; 36556; 36600; 70450; 71045; 76775; 80048; 80053; 80074; 80307; 80320; 81003; 82550; 82728; 82805; 82962; 83540; 83550; 83605; 83690; 83735; 83880; 84132; 84443; 84484; 85007; 85025; 85027; 85610; 85730; 87040; 87070; 87077; 87081; 87086; 87186; 87205; 93005; 93306; 94002; 94003; 94640; 96365; 96368; 99291; G0378; J0330; J1100; J1756; J1815; J1956; J2470; J2543; J2704; J3480; J7042; J7060

== ENCOUNTER 2025-04-22 08:29 | Emergency (ER) | payer OTHER, MEDICAID ==
[~2025-04-22] VITALS: Ht 170.2 cm; Wt 44.5 kg
--- NOTE | 2025-04-22 08:43 | ED.PDOC ---
HPI Comments This is a 70 year old female [place]LA presenting to the ED with chief complaint of chest pain. Patient reports that she has been experiencing chest pain with associated SOB worsening since yesterday. Patient relays that she was recently discharged from a rehab facility after a lengthy hospital admission in [place] for UTI in February, but since then, she has been unable to walk on her own due to muscle atrophy to her legs. Patient denies any dizziness, N/V, headache, syncope, fall, or injury. Chief Complaint: Chest Pain Time Seen by MD: 08:41 Primary Care Provider: CASTRO Reviewed Notes: Nurses Notes, Synthetic Filament Spinner Notes, Medications, Allergies Allergies: Coded Allergies: Sulfa Antibiotics (Verified Allergy, Unknown, 12/04/23) Home Meds No Active Prescriptions or Reported Meds Information Source: Patient, Emergency Med Personnel Mode of Arrival: EMS Severity: Moderate Timing: Days Duration: Since onset Prehospital treatment: None Location: Chest (L) Radiation: No Radiation Quality: Sharp Onset: At Rest Cardiac Risk Factors: None PE Risk Factors: None History of: None Associated Signs and Symptoms: SOB Past Medical History PAST MEDICAL HISTORY: COPD Surgical History: Denies all surgeries SUPERVISOR CLAIMS History: No Pertinent SUPERVISOR CLAIMS History Family History Family History: Reviewed,noncontributory to illness Social History Smoker: Cigarettes Alcohol: Denies ETOH Use Drugs: Denies Drug Use Lives In: Home Constitutional: denies: chills, diaphoresis, fatigue, fever, malaise, sweats, weakness, others EENTM: denies: blurred vision, double vision, ear bleeding, ear discharge, ear drainage, ear pain, ear ringing, eye pain, eye redness, hearing loss, mouth pain, mouth swelling, nasal discharge, nose bleeding, nose congestion, nose pain, photophobia, tearing, throat pain, throat swelling, voice changes, others Respiratory: reports: shortness of breath; denies: cough, hemoptysis, orthopnea, SOB at rest, SOB with excertion, stridor, wheezing, others Cardiovascular: reports: chest pain; denies: dizzy spells, diaphoresis, Dyspnea on exertion, edema, irregular heart beat, left arm pain, lightheadedness, palpitations, PND, syncope, others Gastrointestinal: denies: abdomen distended, abdominal pain, blood streaked bowels, constipated, diarrhea, dysphagia, difficulty swallowing, hematemesis, melena, nausea, poor appetite, poor fluid intake, rectal bleeding, rectal pain, vomiting, others Genitourinary: denies: abnormal vagina bleeding, burning, dyspareunia, dysuria, flank pain, frequency, hematuria, incontinence, pain, , vagina discharge, urgency, others Neurological: denies: dizziness, fainting, headache, left sided numbness, left sided weakness, numbness, paresthesia, pre-existing deficit, right sided numbness, right sided weakness, seizure, speech problems, tingling, tremors, weakness, others Musculoskeletal: denies: back pain, gout, joint pain, joint swelling, muscle pain, muscle stiffness, neck pain, others Integumetry: denies: bruises, change in color, change in hair/nails, dryness, laceration, lesions, lumps, rash, wounds, others Allergic/Immunocompromised: denies: Difficulty Healing, Frequent Infections, Hives, Itching, others Hematologic/Lymphatic: denies: anemia, blood clots, easy bleeding, easy bruising, swollen glands, others Endocrine: denies: excessive hunger, excessive sweating, excessive thirst, excessive urination, flushing, intolerance to cold, intolerance to heat, unexplained weight gain, unexplained weight loss, others Psychiatric: denies: anxiety, bipolar disorder, depression, hopeless, panic disorder, schizophrenia, sleepless, suicidal, others All Other Systems: Reviewed and Negative Physical Exam General Appearance: No Apparent Distress, Other (Chronicly ill-appearing) HEENT: Normal ENT Inspection, Pharynx Normal, TMs Normal Neck: Full Range of Motion, Non-Tender, Normal, Normal Inspection Respiratory: Chest Non-Tender, Lungs Clear, No Accessory Muscle Use, No Respiratory Distress, Normal Breath Sounds Cardiovascular: No Edema, No JVD, No Murmur, No Gallop, Normal Peripheral Pulses, Regular Rate/Rhythm Breast Exam: Deferred Gastrointestinal: No Organomegaly, Non Tender, No Pulsatile Mass, Normal Bowel Sounds, Soft Genitalia: Deferred Pelvic: Deferred Rectal: Deferred Extremities: No calf tenderness, Normal capillary refill, Normal inspection, Normal range of motion, Non-tender, No pedal edema Musculoskeletal : Apperance: Normal Neurologic: Alert, 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 Was a procedure done?: No CP Differential Dx Differential Diagnosis: MAT, AR, PAC's Differential Diagnosis: HTN Essential, HTN Accelerated, Medical NonCompliance Differential Diagnosis: Gastritis, Myocardial Infarction, Pericarditis X-Ray, Labs, Meds, VS Vital Signs Date Time Temp Pulse Resp B/P (MAP) Pulse Ox O2 Delivery O2 Flow Rate FiO2 04/22/25 16:05 105 16 98/65 04/22/25 15:41 98.8 98 17 113/71 (85) 98 98.8 04/22/25 14:47 98 15 107/71 04/22/25 13:08 86 20 104/66 04/22/25 13:00 87 18 97 Room Air* 0 21 04/22/25 13:00 87 18 104/66 (79) 97 04/22/25 11:54 98.6 97 14 106/66 (79) 97 98.6 04/22/25 11:48 90 04/22/25 09:40 98 20 98 Room Air* 0 21 04/22/25 09:33 87 04/22/25 09:17 98.1 98 20 90/57 (68) 98 98.1 04/22/25 08:37 98.0 112 20 103/57 98 98.0 04/22/25 08:34 108 Lab Test 04/22/25 13:14 04/22/25 11:01 04/22/25 09:00 Range/Units Troponin I High Sensitivity < 3 L < 3 L < 3 L </=34 ng/L Sodium Level 140 136-145 mmol/L Potassium Level 5.3 H 3.5-5.1 mmol/L Chloride Level 110 H 98-107 mmol/L Carbon Dioxide Level 20 20-31 mmol/L Anion Gap 10 5-15 Blood Urea Nitrogen 26 H 9-23 mg/dL Creatinine 1.43 H 0.550-1.02 mg/dL Glomerular Filtration Rate Calc 39 >90 mL/min BUN/Creatinine Ratio 18.2 10.0-20.0 Serum Glucose 69 L 74-106 mg/dL Calcium Level 7.5 L 8.7-10.4 mg/dL White Blood Count 8.7 4.4-10.8 10^3/uL Red Blood Count 3.27 L 4.0-5.20 10^6/uL Hemoglobin 9.9 L 12.2-16.2 g/dL Hematocrit 31.8 L 36.0-46.0 % Mean Corpuscular Volume 97.2 80.0-100.0 fL Mean Corpuscular Hemoglobin 30.4 28.0-32.0 pg Mean Corpuscular Hemoglobin Concent 31.3 L 32.0-36.0 g/dL Red Cell Distribution Width 17.7 H 11.8-14.3 % Platelet Count 552 H 140-450 10^3/uL Mean Platelet Volume 7.1 6.9-10.8 fL Neutrophils (%) (Auto) 74.7 37.0-80.0 % Lymphocytes (%) (Auto) 17.0 10.0-50.0 % Monocytes (%) (Auto) 6.1 0.0-12.0 % Eosinophils (%) (Auto) 1.3 0.0-7.0 % Basophils (%) (Auto) 0.9 0.0-2.0 % Neutrophils # (Auto) 6.5 1.6-8.6 10 ^3/uL Lymphocytes # (Auto) 1.5 0.4-5.4 10 ^3/uL Monocytes # (Auto) 0.5 0-1.3 10 ^3/uL Eosinophils # (Auto) 0.1 0-0.8 10 ^3/uL Basophils # (Auto) 0.1 0-0.2 10 ^3/uL Nucleated Red Blood Cells 0.1 % [place] [address] Ph: [phone] DIAGNOSTIC IMAGING Diagnostic Imaging Report : [id number] Signed PATIENT: AMY OSORIO LACCT: [id number] UNIT: [id number] : 1955 LOC: ER ROOM / BED: / AGE / SEX: 70 / F ADM STATUS: REG ER SERVICE [id number] ORDERING PHYSICIAN: DOROTEO CERDA MD PROCEDURE(s): CXRP - CHEST PORTABLE REASON: chest pain ORDER NUMBER(s): [id number], ACCESSION NUMBER(s): [id number] CHEST RADIOGRAPH Indication: chest pain Technique: Single frontal view of the chest was obtained Comparison: XY CHEST PORTABLE on DOS: 03/19/25, XY CHEST PORTABLE on DOS: 03/18/25, XY CHEST PORTABLE on DOS: 03/17/25 FINDINGS: Lines and Tubes: Right internal jugular catheter not seen on the current study Lungs: No focal consolidation. Reinflation Pleura: No effusion. No pneumothorax. Cardiomediastinal contours: Unremarkable Bones: No acute osseous abnormality. IMPRESSION: 1. No acute cardiopulmonary disease. 2. Hyperinflation ATED BY: JUAN DIEGO BEATTY Jr., DO DICTATED DATE/TIME: 04/22/25858 SIGNED BY: JUAN DIEGO BEATTY Jr., SIGNED DATE/TIME: 04/22/25858 CC: Time of 1ST Reevaluation: 09:40 Reevaluation 1ST: Unchanged Patient Education/Counseling: Diagnosis, Treatment Family Education/Counseling: No Family Present SEPSIS Sepsis Screen Physician Orders Chest Portable (04/22/25 08:36) Ok To Change Ambriz (04/22/25 13:24) Imaging Transfer Request (04/22/25 15:35) Vital Signs Date Time Temp Pulse Resp B/P (MAP) Pulse Ox O2 Delivery O2 Flow Rate FiO2 04/22/25 16:05 105 16 98/65 04/22/25 15:41 98.8 98 17 113/71 (85) 98 98.8 04/22/25 14:47 98 15 107/71 04/22/25 13:08 86 20 104/66 04/22/25 13:00 87 18 97 Room Air* 0 21 04/22/25 13:00 87 18 104/66 (79) 97 04/22/25 11:54 98.6 97 14 106/66 (79) 97 98.6 04/22/25 11:48 90 04/22/25 09:40 98 20 98 Room Air* 0 21 04/22/25 09:33 87 04/22/25 09:17 98.1 98 20 90/57 (68) 98 98.1 04/22/25 08:37 98.0 112 20 103/57 98 98.0 04/22/25 08:34 108 Laboratory Tests Test 04/22/25 09:00 White Blood Count 8.7 10^3/uL (4.4-10.8) Departure 1 Departure Time of Disposition: 14:13 ([place] Authorization: [id number] Dr. Han.Patient presented with chest pain that was concerning for possible STEMI, ACS, PE, Pneumonia, Muscle Strain, COPD, Dissection. Data: 1. I ordered and reviewed the result of at least 3 labs including a CBC, BMP, and Troponin. 2. I independently interpreted the following tests: EKG which shows and Chest X-ray which shows .Risk:This patient has a high risk of morbidity due to further diagnostic testing or treatment and may suffer from an acute cardiac or respiratory disorder. Workup reveals and patient should be admitted for further workup and possible expert consultation. ) Impression: Primary Impression: Acute chest pain Disposition: 02 SHORT TERM HOSPITAL Condition: Serious e-Prescriptions No Active Prescriptions or Reported Meds Critical Care Note Critical Care Time?: No Stability Stability form required: No Heart Score Heart Score: Heart Score Response (Comments) Value History Highly Suspicious 2 EKG Normal 0 Age >65 2 Risk Factors 1 or 2 risk factors 1 Troponin 1-2 x's Normal limit 1 Total 6 I personally scribed for DOROTEO CERDA MD ([email or web address]) on 04/22/25 at 08:43. Electronically submitted by Patrice Mix ([email or web address]). I personally scribed for DOROTEO CERDA MD ([email or web address]) on 04/22/25 at 09:13. Electronically submitted by Patrice Mix ([email or web address]). DOROTEO CERDA MD Apr 22, 2025 08:43
--- NOTE | 2025-04-22 09:02 | DVH ---
CHEST RADIOGRAPH Indication: chest pain Technique: Single frontal view of the chest was obtained Comparison: XY CHEST PORTABLE on DOS: 03/19/25, XY CHEST PORTABLE on DOS: 03/18/25, XY CHEST PORTABLE o n DOS: 03/17/25 FINDINGS: Lines and Tubes: Right internal jugular catheter not seen on the current study Lungs: No focal consolidation. Reinflation Pleura: No effusion. No pneumothorax. Cardiomediastinal contours: Unremarkable Bones: No acute osseous abnormality. IMPRESSION: 1. No acute cardiopulmonary disease. 2. Hyperinflation
[2025-04-22 09:40] VITALS: PULSE 98; RESP 20; O2SAT 98
--- NOTE | 2025-04-22 09:43 | ECG ---
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
--- NOTE | 2025-04-22 09:43 | ECG ---
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
[2025-04-22 10:02] LABS: Mean Corpuscular Hemoglobin 30.4 pg (28.0-32.0); Nucleated Red Blood Cells % 0.1 %
[2025-04-22 10:05] LABS: Hematocrit 31.8 % (36.0-46.0); Hemoglobin 9.9 g/dL (12.2-16.2); Mean Corpuscular Volume 97.2 fL (80.0-100.0)
[2025-04-22] MEDS: SODIUM CHLORIDE 0.9% 1,000 ML IV ONE (10:19)
[2025-04-22 11:44] LABS: Anion Gap 10 (5-15); BUN/Creatinine Ratio 18.2 (10.0-20.0); Carbon Dioxide 20 mmol/L (20-31); Sodium 140 mmol/L (136-145)
[2025-04-22 11:45] LABS: Blood Urea Nitrogen 26 mg/dL (9-23); Calcium 7.5 mg/dL (8.7-10.4); Chloride 110 mmol/L (98-107); Glucose 69 mg/dL (74-106); Potassium 5.3 mmol/L (3.5-5.1)
--- NOTE | 2025-04-22 12:23 | ECG ---
[facility] Test Date: 2025-04-22 Test Time: 11:46:02 Pat Name: AMY OSORIO Department: [facility] ED Room: Gender: F Manager Publishing: PAYTON : 1955 Requested By: DOROTEO CERDA Order Number: [id number] Reading MD: Measurements Intervals [place] Rate: 90 P: 80 HI: 136 QRS: 45 QRSD: 79 T: 78 QT: 364 QTc: 446 Interpretive Statements Sinus rhythm Multiple premature complexes, vent & supraven Consider right atrial enlargement Please click the below link to view image of tracing.
[2025-04-22 13:00] VITALS: PULSE 87; RESP 18; O2SAT 97
[2025-04-22] MEDS: ONDANSETRON HCL 4 MG/2 ML VIAL IV ONE (13:00)
[2025-04-22] MEDS: MORPHINE SULFATE INJ 2 MG/ml SYRG ONE (13:08)
[2025-04-22] MEDS: MORPHINE SULFATE 4 MG/ML SYR/VIAL IV ONE (13:08)
[2025-04-22 15:41] VITALS: TEMP 98.8; O2SAT 98
[2025-04-22 16:05] VITALS: BP 98/65; PULSE 105; RESP 16
[2025-04-22] MEDS: HYDROmorphone HCL 2 MG/ML VL/or syr IV ONE (16:05)
== END 2025-04-22 16:34 | disposition short-term general hospital (02) ==
LOC: EDUNIT# 08:29 → EDBD 08:29 → ER 08:34
DX: R07.89 Other chest pain (principal); F17.210 Nicotine dependence, cigarettes, uncomplicated; J44.9 Chronic obstructive pulmonary disease, unspecified; Z87.440 Personal history of urinary (tract) infections; Z88.2 Allergy status to sulfonamides
CPT/HCPCS: 36415; 71045; 80048; 84484; 85025; 93005; 96361; 96374; 96375; 99285; J1171; J2270; J2405; J7030